=== PATIENT | female | born 1960 | race Caucasian/White ===

== ENCOUNTER 2022-03-18 09:34 | Emergency (ER) | payer MEDICARE, MEDICAID, SELFPAY ==
[2022-03-18] VITALS (8 sets, daily range): BP systolic 154–177; BP diastolic 84–118; PULSE 68–91; RESP 16–24; TEMP 36.7; O2SAT 92–100; BMI 31.7
--- NOTE | 2022-03-18 09:48 | ED_ITS ---
HPI - General Adult General: Chief complaint: General Medical Stated complaint: COUGHING UP BLOOD Time Seen by Provider: 03/18/22 09:46 Source: patient and family Mode of arrival: EMS History of Present Illness: 62-year-old female presents to the emergency room Course Vital Signs: Vital signs: Vital Signs Temperature 98.0 F 03/18/22 09:36 Pulse Rate 81 03/18/22 12:00 Respiratory Rate 24 H 03/18/22 12:00 Blood Pressure 154/96 03/18/22 12:00 Pulse Oximetry 97 03/18/22 12:00 Oxygen Delivery Me thod 03/18/22 12:00 Oxygen Flow Rate 2 03/18/22 12:00 MDM - General Adult Medical Decision Making Chest x-ray shows right lung mass is actually fairly impressive. Vital signs are stable. Call Dr. Mccarthy made arrangements for him to see the patient tomorrow he asked that we do a CT today so we can schedule a biopsy he also asked us to help get a PET scan set up in a few days and the PET scan was here all of this was done by case management. Went back to talk to the patient the family was now at the bedside. I began to talk to her about the lung mass that she stated she knew she had a right lung mass she had not told me about this earlier even when asked if she had previously had any hemoptysis. 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 They do confirm that the hemoptysis is relatively new. Reviewed recommendations with him for now since were anticipating a biopsy hold on the aspirin and Plavix. She takes Plavix for stroke prophylaxis she has not previously had any coronary stents per the patient and the family. Hold aspirin as well. She is to have a PET scan in 3 days. Her hemoglobin at this time is stable. Radiology on the CT read as possible obstructive pneumonia although she has very little signs of infectious process we will go and put her on a course of doxycycline for now. Return if she has worsening hemoptysis. Medical Records I reviewed the patient's medical records. Lab Data I reviewed the patient's lab results. : 03/18/22 10:30 03/18/22 10:[address] 03/18/22 09:48 IMPRESSION: Large region of encephalomalacia in the right frontal, parietal and superior temporal regions, suggestive of large right middle cerebral artery territory stroke. No non-contrast CT evidence of intracranial hemorrhage, masses or subacute stroke. Chest X-Ray 03/18/22 10:20 IMPRESSION: Volume loss in the right hemithorax with shift of the mediastinum towards the left. Right upper lung zone 6.7 x 7.3 cm region of airspace opacity. This could represent a mass. Adjacent patchy interstitial and airspace opacities. Some medial right mid to lower lung zone patchy airspace opacities also seen. Small right pleural effusion. Recommend chest CT for further assessment. Chest CT 03/18/22 11:19 IMPRESSION: 1. Suspect a central lesion growing into the mediastinum possibly involving the aortic compressing slightly to superior vena cava causing right lung consolidation with a lucent area questionably developing area of infection. 2. Infiltrate noted involving the lungs bilaterally otherwise most severe in the right base. Laboratory Results WBC 12.1 10^3/uL (4.0-10.0) H 03/18/22 10:30 RBC 4.58 10^6/uL (4.1-5.3) 03/18/22 10:30 Hgb 11.6 g/dL (11.5-15.3) 03/18/22 10:30 Hct 39.9 % (37.0-47.0) 03/18/22 10:30 MCV 87.1 fl (81-99) 03/18/22 10:30 MCH 25.3 pg (28.0-34.0) L 03/18/22 10:30 MCHC 29.1 g/dL (30.0-36.0) L 03/18/22 10:30 RDW 17.9 % (12.1-15.1) H 03/18/22 10:30 Plt Count 439 10^3/cmm (130-400) H 03/18/22 10:30 MPV 10.5 fL (7.4-10.4) H 03/18/22 10:30 Neut % (Auto) 76.6 % 03/18/22 10:30 Lymph % (Auto) 15.3 % 03/18/22 10:30 [place] % (Auto) 5.1 % 03/18/22 10:30 Eos % (Auto) 2.6 % 03/18/22 10:30 Baso % (Auto) 0.2 % 03/18/22 10:30 Neut # (Auto) 9.27 10^3/uL (1.8-7.7) H 03/18/22 10:30 Lymph # (Auto) 1.9 10^3/uL (0.8-4.8) 03/18/22 10:30 [place] # (Auto) 0.6 10^3/uL (0.2-0.9) 03/18/22 10:30 Eos # (Auto) 0.3 10^3/uL (0.0-0.8) 03/18/22 10:30 Baso # (Auto) 0.0 10^3/uL (0.0-0.1) 03/18/22 10:30 Nucleated RBC % (auto) 0 % 03/18/22 10:30 Nucleated RBCs # 0.0 /100WBC 03/18/22 10:30 PT 12.40 SECONDS (12.1-14.9) 03/18/22 10:30 INR 0.90 (0.8-1.2) 03/18/22 10:30 APTT 29.0 SECONDS (23.9-36.7) 03/18/22 10:30 Sodium 141 mmol/L (136-145) 03/18/22 10:30 Potassium 4.2 mmol/L (3.5-5.1) 03/18/22 10:30 Chloride 103 mmol/L (98-107) 03/18/22 10:30 Carbon Dioxide 26 mmol/L (22-29) 03/18/22 10:30 Anion Gap 16.2 (5-19) 03/18/22 10:30 BUN 11 mg/dL (8-23) 03/18/22 10:30 Creatinine 0.4 mg/dL (0.5-0.9) L 03/18/22 10:30 GFR Calculation 162.3 mL/min (90-130) H 03/18/22 10:30 Glucose 116 mg/dL (65-115) H 03/18/22 10:30 Calculated Osmolality 292 mOsm/kg (285-295) 03/18/22 10:30 Calcium 9.3 mg/dL (8.5-10.5) 03/18/22 10:30 Total Bilirubin 0.2 mg/dL (0.15-1.2) 03/18/22 10:30 AST 10 U/L (0-32) 03/18/22 10:30 ALT 10 U/L (0-33) 03/18/22 10:30 Alkaline Phosphatase 107 U/L (35-105) H 03/18/22 10:30 Total Protein 7.2 g/dL (6.6-8.7) 03/18/22 10:30 Albumin 3.3 g/dL (3.5-5.2) L 03/18/22 10:30 Globulin 3.9 g/dL (1.3-4.6) 03/18/22 10:30 Discharge Plan Discharge Patient Disposition: Home Clinical Impression: Mass of upper lobe of right lung, Hemoptysis Condition: Stable Prescriptions: New doxycycline hyclate 100 mg capsule 100 mg PO BID 10 Days Qty: 20 0RF Discontinued clopidogrel 75 mg tablet 75 mg PO QAM aspirin [Aspir-81] 81 mg Tablet,Delayed Release (Dr/Ec) 81 mg PO QAM No Action multivitamin Tablet 1 tab PO QAM losartan 50 mg tablet 50 mg PO QAM furosemide 40 mg tablet 40 mg PO QAM atorvastatin 40 mg tablet 40 mg PO BEDTIME gabapentin 600 mg tablet See Rx Instructions .ROUTE .COMPLEX Rx Instructions: 600mg po daily @12:00 and 1200mg po at bedtime trazodone 50 mg tablet 50 mg PO BEDTIME amlodipine 5 mg tablet 5 mg PO DAILY Calcium + D 600 mg-5 mcg (200 unit) Tablet 1 tab PO DAILY@12 baclofen 20 mg tablet 20 mg PO QID potassium chloride 20 mEq tablet,ER particles/crystals 20 meq PO DAILY@12 famotidine 20 mg tablet 20 mg PO BEDTIME magnesium oxide 400 mg (241.3 mg magnesium) tablet 400 mg PO DAILY@17 metformin 1,000 mg tablet 1,000 mg PO BID nitroglycerin 400 mcg/spray [place],Non-Aerosol 1 spray TRANSLINGUAL Q5M PRN (Reason: Chest Pain) Rx Instructions: do not exceed 3 doses per episode hydroxyzine HCl 25 mg tablet 25 mg PO BEDTIME metoprolol succinate 25 mg tablet extended release 24 hr 12.5 mg PO QAM albuterol sulfate 90 mcg/actuation Hfa Aerosol Inhaler 2 puff INHALATION QID PRN (Reason: Shortness Of Breath) dicyclomine 10 mg capsule 10 mg PO TID Vitamin D3 25 mcg (1,000 unit) Capsule 25 mcg PO DAILY@12 topiramate 50 mg tablet 50 mg PO BEDTIME pregabalin 150 mg capsule 150 mg PO TID cranberry 450 mg Tablet 450 mg PO DAILY@12 Rx Instructions: administer with a meal Discharge Orders: Discharge ED (Routine); Ordered 03/18/22 Ordered By: Karel Pryor Referrals: Datar,Chris Agrawal MD [Physician] - 03/19/22 11:15 am Patient Instructions: Opioid Safety Activity Restrictions/Additional Instructions: Follow-up with your doctor discharge as scheduled tomorrow morning. They have scheduled a PET scan for you Wednesday at 9 AM. Coding Level of Care Code ED Call Center Coordinator for Tomi Gramajo
--- NOTE | 2022-03-18 09:48 | CTR_ITS ---
PROCEDURE INFORMATION: Exam: CT Head Without Contrast Exam date and time: 03/18/2022 9:57 AM Age: 62 years old Clinical indication: Injury or trauma; Fall; Blunt trauma (contusions or hematomas); Patient HX: HX of stroke TECHNIQUE: Imaging protocol: Computed tomography of the head without contrast. Radiation optimization: All CT scans at this facility use at least one of these dose optimization techniques: automated exposure control; mA and/or kV adjustment per patient size (includes targeted exams where dose is matched to clinical indication); or iterative reconstruction. COMPARISON: No relevant prior studies available. RADIATION DOSE METRICS: Total DLP (mGy-cm): 874.68 FINDINGS: Brain: Large region of encephalomalacia is seen in the right frontal, parietal and superior temporal regions, suggestive of large right middle cerebral artery territory stroke. There is associated adjacent basal ganglion region and periventricular white matter gliosis. Recommend correlation with clinical history. There is mild generalized brain parenchymal atrophy seen in the remainder of the brain. Atrophic changes of the corpus callosum are seen. There are no intracranial masses, mass effect or midline shift. There is no cerebral edema. There is no subarachnoid hemorrhage. There are no intra-or extra-axial fluid collections, intraventricular or intraparenchymal hemorrhage. No definite areas of low attenuation or bah-white matter junction obscuration seen on the noncontrast CT to suggest definite subacute stroke - although the white matter disease limits assessment. Cerebral ventricles: Ex vacuo dilatation of the right lateral ventricle is seen. The left lateral third and fourth ventricles appear unremarkable. The suprasellar and basilar cisterns appear unremarkable. Paranasal sinuses: The visualized sinuses are unremarkable. Mastoid air cells: The visualized mastoids are unremarkable. Orbital cavities: The visualized orbits are unremarkable. Bones/joints: No definite acute osseous or skull abnormalities seen. Soft tissues: Unremarkable. Notes: If there is further clinical concern for intracranial pathology, MRI of the brain may be performed for further assessment. CT/CT head wo con* [id number] IMPRESSION: Large region of encephalomalacia in the right frontal, parietal and superior temporal regions, suggestive of large right middle cerebral artery territory stroke. No non-contrast CT evidence of intracranial hemorrhage, masses or subacute stroke.
--- NOTE | 2022-03-18 10:20 | XRR_ITS ---
PROCEDURE INFORMATION: Exam: XR Chest Exam date and time: 03/18/2022 10:25 AM Age: 62 years old Clinical indication: Patient HX: Coughing up blood; Additional info: Dyspnea/cough TECHNIQUE: Imaging protocol: Radiologic exam of the chest. Views: 1 view. COMPARISON: No relevant prior studies available. FINDINGS: Lungs: There is volume loss in the right hemithorax with shift of the mediastinum towards the left. Right upper lung zone 6.7 x 7.3 cm region of airspace opacity is seen. This could represent a mass. Adjacent patchy interstitial and airspace opacities are seen. Some medial right mid to lower lung zone patchy airspace opacities are also seen. Small right pleural effusion is seen. Recommend chest CT for further assessment. There is mild hyperinflation of the left lung. There are no left lung interstitial airspace opacities. Pleural spaces: Tiny left pleural effusion is seen. No pneumothorax. Heart/Mediastinum: The heart size is normal.There is a mildly tortuous thoracic aorta. There is mild shift of the trachea to the right. The patient is status post median sternotomy with sternal wires. Bones/joints: No acute osseous abnormalities seen. Soft tissues: Multiple external densities are seen overlying the chest, limiting assessment. XR/XR chest 1V portable [id number] IMPRESSION: Volume loss in the right hemithorax with shift of the mediastinum towards the left. Right upper lung zone 6.7 x 7.3 cm region of airspace opacity. This could represent a mass. Adjacent patchy interstitial and airspace opacities. Some medial right mid to lower lung zone patchy airspace opacities also seen. Small right pleural effusion. Recommend chest CT for further assessment.
--- NOTE | 2022-03-18 10:42 | ECG_ITS ---
[facility] Test Date: 2022-03-18 Pat Name: Cee Dai Department: Room: Gender: Female Biotechnician: : 1960 Requested By: Karel Coughlin Order Number: [id number] Richie MD: Benedict Watt M.D. Measurements Intervals [place] Rate: 71 P: 57 [place]: 159 QRS: 30 QRSD: 86 T: 56 QT: 361 QTc: 395 Interpretive Statements SINUS RHYTHM WITH OCCASIONAL SUPRAVENTRICULAR PREMATURE COMPLEXES LOW QRS VOLTAGE IN PRECORDIAL LEADS [QRS DEFLECTION < 1.0 mV IN CHEST LEADS] No previous ECG available for comparison Electronically Signed On 03-18-2022 17:17:26 CDT by Benedict Watt M.D. [id number]
[2022-03-18 10:54] LABS: Basophils % 0.2 %; Eosinophils # 0.3 10^3/uL (0.0-0.8); Eosinophils % 2.6 %; Hematocrit 39.9 % (37.0-47.0); Hemoglobin 11.6 g/dL (11.5-15.3); Lymphocytes # 1.9 10^3/uL (0.8-4.8); Lymphocytes % 15.3 %; Mean Corpuscular HGB Conc 29.1 g/dL (30.0-36.0); Mean Corpuscular Hemoglobin 25.3 pg (28.0-34.0); Mean Corpuscular Volume 87.1 fl (81-99); Mean Platelet Volume 10.5 fL (7.4-10.4); Monocytes # 0.6 10^3/uL (0.2-0.9); Monocytes % 5.1 %; Neutrophils # 9.27 10^3/uL (1.8-7.7); Neutrophils % 76.6 %; Nucleated Red Blood Cells % 0 %; Platelet Count 439 10^3/cmm (130-400); Red Blood Count 4.58 10^6/uL (4.1-5.3); Red Cell Distribution Width 17.9 % (12.1-15.1); White Blood Count 12.1 10^3/uL (4.0-10.0)
[2022-03-18 11:06] LABS: Alanine Aminotransferase 10 U/L (0-33); Albumin Level 3.3 g/dL (3.5-5.2); Alkaline Phosphatase 107 U/L (35-105); Anion Gap 16.2 (5-19); Aspartate Amino Transferase 10 U/L (0-32); Blood Urea Nitrogen 11 mg/dL (8-23); Calcium 9.3 mg/dL (8.5-10.5); Carbon Dioxide 26 mmol/L (22-29); Chloride 103 mmol/L (98-107); Globulin 3.9 g/dL (1.3-4.6); Glomerular Filtration Rate 162.3 mL/min (90-130); Glucose 116 mg/dL (65-115); Osmolality Calculated 292 mOsm/kg (285-295); Potassium 4.2 mmol/L (3.5-5.1); Sodium 141 mmol/L (136-145); Total Bilirubin 0.2 mg/dL (0.15-1.2); Total Protein 7.2 g/dL (6.6-8.7)
--- NOTE | 2022-03-18 11:19 | CTR_ITS ---
PROCEDURE INFORMATION: Exam: CT Chest With Contrast; Diagnostic Exam date and time: 03/18/2022 12:22 PM Age: 62 years old Clinical indication: Mass, lump, or swelling in the chest; Prior surgery; Surgery date: 6+ months; Surgery type: Heart surgery; Additional info: Lung mass, hemoptysis TECHNIQUE: Imaging protocol: Diagnostic computed tomography of the chest with contrast. Radiation optimization: All CT scans at this facility use at least one of these dose optimization techniques: automated exposure control; mA and/or kV adjustment per patient size (includes targeted exams where dose is matched to clinical indication); or iterative reconstruction. Contrast material: OMNIPAQUE; Contrast volume: 80 ml; Contrast route: INTRAVENOUS (IV); COMPARISON: CR XR chest 1V portable [id number] 03/18/2022 10:25 AM RADIATION DOSE METRICS: Total DLP (mGy-cm): 437.51 FINDINGS: Lungs: There is a large area of consolidation with a more central area of lucency involving the right upper lobe. The lucency measures 40 x 50 mm image 3/22 surrounded by possibly atelectatic lung. The presence of a central mass is question measuring possibly 2 cm on image 3/23. Consolidation infiltrate is noted involving the right lower lobe as well as the lingula. Ill-defined tree-in-bud type infiltrate is noted involving the left lower lobe and minimally in the left upper lobe. Pleural spaces: Unremarkable. No pneumothorax. No pleural effusion. Heart: Unremarkable. No cardiomegaly. No pericardial effusion. Lymph nodes: Unremarkable. No enlarged lymph nodes. Vasculature: The mass questionably centrally within the lung does compressed superior vena cava and may involve the aorta with irregularity of the aortic wall image 3/22 extending into the mediastinum where there is a 20 x 22 mm density/mass. Bones/joints: Sternal sutures. Soft tissues: Unremarkable. CT/CT chest w con* [id number] IMPRESSION: 1. Suspect a central lesion growing into the mediastinum possibly involving the aortic compressing slightly to superior vena cava causing right lung consolidation with a lucent area questionably developing area of infection. 2. Infiltrate noted involving the lungs bilaterally otherwise most severe in the right base.
[2022-03-18] MEDS: diphenhydrAMINE 50 mg/mL SDV 1mL IVP (11:54)
[2022-03-18] MEDS: iohexol 350 mg/mL 100 mL Btl IV (12:27)
--- NOTE | 2022-03-18 14:17 | DCPLANNER ---
Addendum entered by Karla Jamison 04/24/22 12:25: Patient had a follow up appointment scheduled with pulmonology - patient did attend appointment. Addendum entered by Karla Jamison 03/19/22 12:36: manager outpatient faxed patients records that were requested for the PET scan to [phone]. Original Note: manager outpatient was asked to schedule an out patient CT scan for patient, stat. manager outpatient faxed order to centralized scheduling and explained to centralized scheduling and explained that the patient wanted this ordered as soon as possible. Centralized scheduling will call patient appointment information. manager outpatient was asked to schedule a follow up appointment for patient with pulmonology. manager outpatient called Sandi at [facility], gave her patients information and informed her that Dr. Harmon was consulted on patient and that Dr. Harmon said that he would see patient tomorrow (03.19.22) afternoon. manager outpatient was told that [facility] would speak with Dr. Harmon nurse and call patient back with the appointment information. Patient has a follow up appointment scheduled for March at 11:15. manager outpatient informed ER physician and the patient of the scheduled appointment. manager outpatient was also asked to schedule an outpatient PET scan for patient. manager outpatient called to schedule a PET scan. The scan was scheduled for Wednesday, March 21 at 9:00. manager outpatient informed ER physician of the scheduled appointment. manager outpatient also informed patient of the scheduled PET scan. manager outpatient will need to fax ER notes, demographic sheet, and imaging to . manager outpatient spoke with Dr. Harmon about placing an order for the PET scan, was told that he would sign it but would need to speak with his nurse. manager outpatient left a message for Dr. Harmon's nurse at [facility], that the order would need to be faxed and that Dr. Harmon notes from the visit tomorrow would need to be faxed by tomorrow afternoon, and gave the number that the information would need to be faxed to.
== END 2022-03-18 13:30 | disposition home or self-care (01) ==
PROVIDERS: Emergency Provider Family Medicine
DX: R04.2 Hemoptysis (principal); R91.8 Other nonspecific abnormal finding of lung field; Z79.84 Long term (current) use of oral hypoglycemic drugs
CPT/HCPCS: 70450; 71045; 71260; 80053; 85025; 85610; 85730; 93005; 96374; 96375; 99285; J1200; J2920; Q9967

== ENCOUNTER → 2022-03-19 11:02 | Outpatient (BNVA) | payer MEDICARE, MEDICAID, SELFPAY | PROVIDERS: PCP Nurse Practitioner Family; Visit Provider Internal Medicine Pulmonary Disease | DX: R04.2 Hemoptysis (principal); R91.8 Other nonspecific abnormal finding of lung field; J44.9 Chronic obstructive pulmonary disease, unspecified; Z87.891 Personal history of nicotine dependence; Z91.89 Other specified personal risk factors, not elsewhere classified; I69.354 Hemiplegia and hemiparesis following cerebral infarction affecting left non-dominant side | CPT/HCPCS: 99214 ==

== ENCOUNTER 2022-03-24 05:47 | Day surgery (SDC) | payer MEDICARE, MEDICAID, SELFPAY ==
[2022-03-20 12:00] VITALS: BMI 30.7
[2022-03-24] VITALS (15 sets, daily range): BP systolic 95–126; BP diastolic 43–73; PULSE 56–86; RESP 14–16; TEMP 36.2–36.3; O2SAT 91–99
[2022-03-24] MEDS: sodium chloride 0.9% 1,000 ML 30 ML IV (06:24)
--- NOTE | 2022-03-24 06:59 | P.ANESASSM_ITS ---
Pre-Anesthetic Assessment Height/Weight: Height 1.65 m Weight 83.915 kg Temp Pulse Resp BP Pulse Ox O2 Del Method 97.3 F L 59 L 16 107/66 91 03/24/22 06:11 03/24/22 06:11 03/24/22 06:11 03/24/22 06:11 03/24/22 06:11 03/24/22 06:11 Operation Date: 03/24/22 07:10 Proposed Procedures p EBUS; 21112, 41998, 45135, 02939,R91.8(Not Applicable) - Chris Agrawal DatarMD Familial anesthetic complications: None Was Beta Daphne taken within 24 hours: Yes Was Clonidine taken within 24 hours: N/A Last intake: Intake Last Liquid Date 03/23/22 Last Liquid Time 19:00 Last Solid Date 03/23/22 Last Solid Time 16:00 Social Tobacco 3 pack(s) per day Quit smoking a few weeks ago Exam alert and oriented x 3 Bilateral wheezing in lower lobes. Wears 2L O2. Airway Submandibular: within normal limits Cervical ROM: within normal limits Mallampati: Class III Dentition: other (No teeth) History/ROS No significant history except as noted and No significant complaints Pulmonary Chronic Obstructive Pulmonary Disease and Cough CV/HEM Coronary Artery Disease and Hypertension 1 stent placed years. Last saw helicopter engineer years ago. Urinary Tract Infection Last UTI 3-4 years ago Hepatic None reported GI None reported Metabolic Diabetes Mellitus and Hyperlipidemia Musc/skel Lower Back Pain Neuropsych Anxiety and Cerebrovascular Accident Stroke in 2015. Paralyzed left side. Anesthetic Plan ASA status: 3 Anesthesia: Anesthesia Evaluation and General Risk of > 500 ml blood loss (7ml/kg in children): No Medications/Allergies Home Medications Medication Instructions Recorded Confirmed Last Taken Type albuterol sulfate 90 mcg/actuation 2 puff inhalation QID PRN 03/18/22 03/24/22 03/23/22 History aerosol inhaler Shortness Of Breath amlodipine 5 mg tablet 5 mg PO DAILY 03/18/22 03/24/22 1 Week Ago History ~03/11/22 see pharmacy comment atorvastatin 40 mg tablet 40 mg PO BEDTIME 03/18/22 03/24/22 03/23/22 History baclofen 20 mg tablet 20 mg PO QID 03/18/22 03/24/22 03/23/22 History cholecalciferol (vitamin D3) 25 25 mcg PO DAILY@12 03/18/22 03/24/22 03/23/22 History mcg (1,000 unit) capsule (Vitamin D3) cranberry fruit 450 mg tablet 450 mg PO DAILY@03/18/22 03/24/22 03/23/22 History (cranberry) dicyclomine 10 mg capsule 10 mg PO TID 03/18/22 03/24/22 03/23/22 History doxycycline hyclate 100 mg capsule 100 mg PO BID 10 days #20 caps 03/18/22 03/24/22 03/23/22 Rx famotidine 20 mg tablet 20 mg PO BEDTIME 03/18/22 03/24/22 03/23/22 History furosemide 40 mg tablet 40 mg PO QAM 03/18/22 03/24/22 03/23/22 History gabapentin 600 mg tablet See Rx Instructions .Route .COMPLEX 03/18/22 03/24/22 03/23/22 History hydroxyzine HCl 25 mg tablet 25 mg PO BEDTIME 03/18/22 03/24/22 03/23/22 History losartan 50 mg tablet 50 mg PO QAM 03/18/22 03/24/22 03/23/22 History magnesium oxide 400 mg (241.3 mg 400 mg PO DAILY@03/18/22 03/24/22 03/23/22 History magnesium) tablet metformin 1,000 mg tablet 1,000 mg PO BID 03/18/22 03/24/22 03/23/22 History metoprolol succinate 25 mg 12.5 mg PO QAM 03/18/22 03/24/22 03/24/22 History tablet,extended release 24 hr multivitamin 1 tab PO QAM 03/18/22 03/24/22 03/23/22 History nitroglycerin 400 mcg/spray 1 spray translingual Q5M PRN Chest 03/18/22 03/24/22 Unknown History translingual Pain potassium chloride 20 mEq 20 meq PO DAILY@03/18/22 03/24/22 03/23/22 History tablet,extended release(part/cryst) pregabalin 150 mg capsule 150 mg PO TID 03/18/22 03/24/22 03/23/22 History topiramate 50 mg tablet 50 mg PO BEDTIME 03/18/22 03/24/22 03/23/22 History trazodone 50 mg tablet 50 mg PO BEDTIME 03/18/22 03/24/22 03/23/22 History calcium carbonate 600 mg-vitamin 1 tab PO DAILY@12 03/19/22 03/24/22 03/23/22 History D3 5 mcg (200 unit) tablet melatonin 10 mg capsule 20 mg PO DAILY 03/19/22 03/24/22 03/23/22 History tiotropium bromide 2.5 2 puff inhalation DAILY #4 grams 03/19/22 03/24/22 03/23/22 Rx mcg/actuation mist for inhalation (Spiriva Respimat) Allergies Allergy/AdvReac Type Severity Reaction Status Date / Time codeine Allergy ADR-Vomitin Verified 03/24/22 06:08 g Iodinated Contrast Media Allergy ALGY-Redness Verified 03/24/22 06:08 of Skin Penicillins Allergy ALGY-Hives Verified 03/24/22 06:08 Current Medications Generic Name Dose Route Start Last Admin Trade Name Freq PRN Reason Stop Dose Admin Sodium Chloride 1,000 mls @ 30 mls/hr 03/24/22 06:00 03/24/22 06:24 Sodium Chloride 0.9% IV 03/25/22 05:59 30 mls/hr .Q24H WES Administration PFSH Anesthesia Social History Smoking and tobacco status: former smoker Quit status (tobacco): has quit using tobacco Year quit tobacco: January 2022 Former quit date comment: 3ppd x 45 Data Anesthesia Cardiac Studies: No Data to Display
--- NOTE | 2022-03-24 07:00 | W.PM.OPSUD ---
Surgery/Procedure H&P Update DATE OF PROCEDURE: March 24, 2022 DATE H&P PERFORMED: 03/19/22 CHANGES TO PREVIOUS DOCUMENTATION: none PRIMARY INDICATION FOR PROCEDURE: right upper lobe mass - suspicous for malignancy PLANNED PROCEDURE: Operation Date: 03/24/22 07:10 Proposed Procedures p EBUS; 20429, 48454, 43277, 86494,R91.8(Not Applicable) - Chris Agrawal DatarMD Related Problem List Diagnoses (1) Mass of upper lobe of right lung: (2) Hemoptysis:
[2022-03-24] MEDS: ipratropium-albuterol 3 mL Neb INHALATION (07:15)
[2022-03-24] MEDS: lidocaine 1% INJ 20 mL XX (08:13)
[2022-03-24] MEDS: EPINEPHrine 1 mg/mL INJ XX (08:13)
--- NOTE | 2022-03-24 08:40 | XRR_ITS ---
PROCEDURE INFORMATION: Exam: XR Chest Exam date and time: 03/24/2022 8:46 AM Age: 62 years old Clinical indication: Device placement; Other: Post bronchoscopy; Prior surgery; Surgery date: Post-operative (0-2 days) TECHNIQUE: Imaging protocol: Radiologic exam of the chest. Views: 1 view. COMPARISON: CT chest w con* [id number] 03/18/2022 12:22 PM FINDINGS: Lungs: There are unchanged decreased right lung volumes. Unchanged right upper lobe ovoid region of airspace opacity is seen. Unchanged medial right basilar opacities are seen. There is unchanged hyperinflation of the left lung. Unchanged minimal left basilar interstitial opacities are seen. Unchanged small right pleural effusion. Pleural spaces: No pneumothorax. Heart/Mediastinum: There is unchanged shift of the mediastinum towards the right. The heart size is normal. The patient is status post prior median sternotomy with sternal wires. Bones/joints: No acute abnormalities. Mild rightward scoliosis of the lumbar spine is seen. Soft tissues: Multiple external densities are seen overlying the chest, limiting assessment. XR/XR chest 1V portable [id number] IMPRESSION: No significant change in correlation with the prior chest radiograph dated March 18, 2022.
--- NOTE | 2022-03-24 08:41 | P.OP_ITS ---
Operative Report Date of procedure: March 24, 2022 Pre-op diagnosis: right upper lobe mass suspected malignancy Post-op diagnosis: malignancy Procedure done: 31587 Dx Bronchoscope w/Washings or airway inspection 26922 Dx Bronchoscope w/BAL 83582 Dx Bronchoscopy w/Bronchial or Endobronchial biopsy(s), single or multiple sites Brief History: 62 year old female with PMH COPD, Chronic smoker, H/O CVA with dense left hemiplegia, hypertension, diabetes, seen in [facility] ED 03/18/22? f/u for hemoptysis, lung mass seen on CT;?? Former cigarette smoker, quit January 2022, 3ppd x 45 year Hx.? Receiving services through [place], 02 therapy from [facility]. ? ? Reviewed CT chest 03/18/22 - Suspect a central lesion growing into the mediastinum possibly involving the aortic compressing slightly to superior vena cava causing right lung consolidation with a lucent area questionably developing area of infection. Infiltrate noted involving the lungs bilaterally otherwise most severe in the right base. She has known about lung mass for approx 1 year found at [facility], had a second CT and told she needed to see pulm, but appt never set up.? Daughter Donna who is HH nurse moved Pt in with her January 2022 and began coordinating care. ? Using 02 therapy prn during the day and with sleep at night, typically 02 sats at home mid 80s on RA. Today scheduled for bronchoscopic evaluation of right upper lobe mass for possible endobronchial biopsies, possible endobronchial ultrasound-guided biopsies of mediastinal and hilar lesions which will help with staging, Procedure: Name of the procedure: 64512:Dx Bronchoscope w/Washings or airway inspection 15188: Dx Bronchoscope w/BAL 34512:Dx Bronchoscopy w/Bronchial or Endobronchial biopsy(s), single or multiple sites Control of bleeding Indication: Right upper lobe central lesion extending into mediastinum seen on CT chest 03/18/2022 Anesthesia: General anesthesia. Local anesthesia: The rosa in the right and left mainstem bronchi were anesthetized with 1% lidocaine, 3 mL. Description of the procedure: The procedure was explained to the patient and the consent was obtained. The patient was brought to the OR. The patient underwent LMA placement for general anesthesia. Following induction of general anesthesia, the bronchoscope was advanced through the LMA. Normal glottis with mobile vocal cords noted. 1 mL 1% lidocaine instilled. Bronchoscope was advanced through the glottis and 1 mL 1% lidocaine instilled in the trachea. The trachea appeared normal mucosa with no endotracheal lesions. The rosa was sharp. The rosa, the right and left mainstem bronchi are anesthetized with 1% lidocaine. In a systematic manner bilateral bronchial tree was then examined. The bronchoscope was advanced into the left mainstem bronchus. The left upper lobe, lingula and left lower lobe bronchi were examined up to the third subsegmental level and no abnormalities were identified. There is no endobronchial lesion, active bleeding or mucous plug throughout the left endobronchial tree. The bronchoscope was then introduced into the right mainstem bronchus. The opening of right upper lobe is completely occluded with extrinsic compression. While attempting to pass scope through the right upper lobe ostia, patient started to bleed which was controlled with cold saline. The scope was then advanced into bronchus intermedius and evaluated right middle lobe and right lower lobe bronchi were examined up to the third subsegmental level. The right lower lobe subsegment all appeared edematous with no definitive endobronchial lesion. Initially took 1 endobronchial biopsy from the right upper lobe. Pathology did JULIAN and reported malignant cells. But as patient was actively bleeding, I have to to instill epinephrine and cold saline to control bleeding. At this point I decided to inspect with endobronchial ultrasound and see if I can biopsy hilar or mediastinal mass. So currently bronchoscope was retracted and Endobronchial ultrasound was introduced through LMA. Right hilar and mediastinal mass was seen infiltrating the vasculature and could not identify a safe area for biopsy. Hence I did not biopsy using endobronchial ultrasound and retracted EBUS. I again introduced bronchoscope and by then bleeding from right upper lobe are still opening stopped. So I proceeded to obtain 4-5 specimens from the same area and placed in formalin for further studies. Also obtained BAL from right upper lobe and sent for cultures and cytology; and did BAL from right lower lobe and sent as a separate specimen for cultures and cytology Samples: 1. Bronchoalveolar lavage specimen from right upper lobe was sent for cell count and differential, Gram stain and culture, 2. Bronchoalveolar lavage specimen from right lower lobe was sent for cell count and differential, Gram stain and culture, 3. The endobronchial biopsies from right upper lobe are sent for histopathology. Complications: There was no immediate complications. Postprocedure fluoroscopy did not reveal any pneumothorax. The patient was extubated and brought to the PACU in stable condition. Chest x-ray: No pneumothorax Disposition: Patient is stable for discharge and updated in the next of kin patient's daughter and son to follow-up in clinic for path results next week.
[2022-03-24 09:23] LABS: Cyto Order Verification Order Verified
[2022-03-24 09:24] LABS: Cyto Order Verification Order Verified
[2022-03-24 10:03] LABS: Apprearance, Bronch Wash Bloody (CLEAR); Color, Bronc Wash Red; Total Cells Counted Bronch 300
[2022-03-24 10:18] LABS: Apprearance, Bronch Wash Bloody (CLEAR); Color, Bronc Wash Red; Total Cells Counted Bronch 300
--- NOTE | 2022-03-24 13:14 | ANE.PACU2 ---
Inpatient post-anesthesia follow up: Airway intact: Yes Vital signs: Temperature 97.2 F Pulse Rate 56 Respiratory Rate 16 Blood Pressure 112/52 Pulse Oximetry 98 Oxygen Delivery Me thod Nasal Cannula Oxygen Flow Rate 2 Fraction of Inspir ed Oxygen Hydration adequate: Yes Nausea and vomiting: No Pain level: 1 Mental status: Baseline
[2022-03-30 14:39] LABS: PD-L1 (Clone 22C3) by IHC BBPL See Report
== END 2022-03-24 10:34 | disposition home or self-care (01) ==
PROVIDERS: PCP Nurse Practitioner Family; Visit Provider Internal Medicine Pulmonary Disease
PROC: BB4BZZZ Ultrasonography of Pleura (ICD-10-PCS; principal; 2022-03-24 07:00)
PROC: 0BJ08ZZ Inspection of Tracheobronchial Tree, Via Natural or Artificial Opening Endoscopic (ICD-10-PCS; CPT 31622; 2022-03-24 07:00)
DX: R91.8 Other nonspecific abnormal finding of lung field (principal); Z87.891 Personal history of nicotine dependence; Z99.81 Dependence on supplemental oxygen; J44.9 Chronic obstructive pulmonary disease, unspecified; I25.10 Atherosclerotic heart disease of native coronary artery without angina pectoris; I10 Essential (primary) hypertension; Z95.5 Presence of coronary angioplasty implant and graft; E11.9 Type 2 diabetes mellitus without complications; E78.5 Hyperlipidemia, unspecified; F41.9 Anxiety disorder, unspecified; Z86.73 Personal history of transient ischemic attack (TIA), and cerebral infarction without residual deficits
CPT/HCPCS: 31624; 31625; 31652; 71045; 80503; 87070; 87077; 87186; 87205; 88108; 88307; 88341; 88342; 89050; 94640; J0171; J0330; J1100; J2370; J2405; J2704; J3490; J7030

== ENCOUNTER 2022-04-01 08:08 | Oncology outpatient (recurring) (ONCR) | payer MEDICARE, MEDICAID, SELFPAY | END 2022-04-01 23:59 | disposition home or self-care (01) | PROVIDERS: PCP Nurse Practitioner Family; Visit Provider Internal Medicine Hematology & Oncology | DX: C34.91 Malignant neoplasm of unspecified part of right bronchus or lung (principal); J43.9 Emphysema, unspecified; C34.11 Malignant neoplasm of upper lobe, right bronchus or lung; Z87.891 Personal history of nicotine dependence; I69.354 Hemiplegia and hemiparesis following cerebral infarction affecting left non-dominant side; Z91.89 Other specified personal risk factors, not elsewhere classified; Z95.5 Presence of coronary angioplasty implant and graft | CPT/HCPCS: 99204; 99214 ==

== ENCOUNTER 2022-04-20 12:47 | Oncology outpatient (recurring) (ONCR) | payer MEDICARE, MEDICAID, SELFPAY ==
[2022-04-17 09:00] LABS: Basophils % 0.3 %; Eosinophils # 0.3 10^3/uL (0.0-0.8); Eosinophils % 2.9 %; Hematocrit 40.7 % (37.0-47.0); Hemoglobin 11.5 g/dL (11.5-15.3); Lymphocytes # 2.2 10^3/uL (0.8-4.8); Lymphocytes % 19.3 %; Mean Corpuscular HGB Conc 28.3 g/dL (30.0-36.0); Mean Corpuscular Hemoglobin 25.4 pg (28.0-34.0); Mean Corpuscular Volume 89.8 fl (81-99); Mean Platelet Volume 10.7 fL (7.4-10.4); Monocytes # 0.7 10^3/uL (0.2-0.9); Monocytes % 5.9 %; Neutrophils # 8.23 10^3/uL (1.8-7.7); Neutrophils % 71.2 %; Nucleated Red Blood Cells % 0 %; Platelet Count 436 10^3/cmm (130-400); Red Blood Count 4.53 10^6/uL (4.1-5.3); Red Cell Distribution Width 20.3 % (12.1-15.1); White Blood Count 11.6 10^3/uL (4.0-10.0)
[2022-04-17 09:16] LABS: Alanine Aminotransferase 9 U/L (0-33); Albumin Level 3.6 g/dL (3.5-5.2); Alkaline Phosphatase 140 U/L (35-105); Aspartate Amino Transferase 12 U/L (0-32); Blood Urea Nitrogen 8 mg/dL (8-23); Calcium 9.8 mg/dL (8.5-10.5); Carbon Dioxide 21 mmol/L (22-29); Chloride 105 mmol/L (98-107); Globulin 4.2 g/dL (1.3-4.6); Glomerular Filtration Rate 125.4 mL/min (90-130); Glucose 92 mg/dL (65-115); Osmolality Calculated 286 mOsm/kg (285-295); Sodium 139 mmol/L (136-145); Total Bilirubin 0.2 mg/dL (0.15-1.2); Total Protein 7.8 g/dL (6.6-8.7)
[2022-04-17 09:20] LABS: Anion Gap 17.3 (5-19); Potassium 4.3 mmol/L (3.5-5.1)
--- NOTE | 2022-04-20 13:25 | N.ONRAD NP_ITS ---
Radiation Oncology Consultation Patient Name: Cee Dai Date of : 1960 Date of Service: 04/20/2022 Attending Physician: Sher Montanez M.D. Cee aDi was seen in consultation this afternoon at the request of Fani Sepulveda M.D. for consideration of thoracic radiotherapy in the management of a recently diagnosed non-small cell lung cancer. The patient evaluated at the [facility] Emergency Department on March 18, 2022 for hemoptysis. A chest radiograph identified a 6.7 cm x 7.3 cm right upper lung opacity. A thoracic CT described a 4 cm x 5 cm consolidation within the right upper lobe of the lung that compresses the superior vena cava with possible involvement of the aorta and a right lower-lobe consolidation. A bronchoscopy with endobronchial biopsies was performed by Chris Mccarthy M.D. on March 24, 2022. Intraoperative findings included occlusion of the right upper lobe bronchus from extrinsic compression. Biopsy from the right upper lobe mass diagnosed a poorly differentiated adenocarcinoma (PD???L1 TPS greater than 50%). A PET scan (independently reviewed in [facility]) ordered on April 07, 2022 confirmed a hypermetabolic consolidation in the right upper lobe of the lung (SUV 6.5) and FDG activity within the right hilum. There was no systemic metastatic disease. The patient was evaluated for definitive thoracic radiotherapy. I discussed with Ms. Dai the [place] [employer] Staging for lung cancer and specifically, the clinical stage IIIA (T3N1) lung cancer corresponding to her disease. I also reviewed The National Comprehensive Cancer Network Guidelines recommending s concurrent chemoradiotherapy. Combined modality therapy was established by the classic study, RTOG 9410, comparing sequential versus concurrent chemoradiotherapy that demonstrated an overall survival advantage for the concurrent chemoradiotherapy regimen. I would endorse a six week course of thoracic radiotherapy. Prior to treatment, I will order an MRI of the brain to complete staging. Preceding radiotherapy, a computed tomographic radiotherapy planning scan with contrast in the treatment position will be acquired and co-registered to the patient's staging PET scan to identify the gross tumor volumes. The potential toxicities of thoracic radiotherapy were reviewed. The patient has verbalized understanding would like to proceed as recommended. The patient???s treatment plan was discussed with Fani Sepulveda M.D. Signed by: Dr. Sher Montanez 05/07/2022 8:36:38 AM
== END 2022-05-01 23:59 | disposition home or self-care (01) ==
PROVIDERS: Internal Medicine Hematology & Oncology; PCP Nurse Practitioner Family; Visit Provider Radiology Radiation Oncology
DX: C34.11 Malignant neoplasm of upper lobe, right bronchus or lung (principal)
CPT/HCPCS: 36415; 80053; 85025; 99205; 99214

== ENCOUNTER → 2022-04-22 10:48 | Outpatient (BNVA) | payer MEDICARE, MEDICAID, SELFPAY | PROVIDERS: PCP Nurse Practitioner Family; Visit Provider Surgery | DX: C34.90 Malignant neoplasm of unspecified part of unspecified bronchus or lung (principal) | CPT/HCPCS: 99203 ==

== ENCOUNTER 2022-04-30 09:50 | Emergency (ER) | payer MEDICARE, MEDICAID, SELFPAY ==
[2022-04-30 09:57] VITALS: BP 182/111; PULSE 74; RESP 16; O2SAT 94; BMI 31.7
[2022-04-30 10:01] VITALS: BP 153/93
--- NOTE | 2022-04-30 10:07 | ED_ITS ---
HPI - Back Pain/Injury General: Chief Complaint: Back Pain/Injury Stated Complaint: back pain Time Seen by Provider: 04/30/22 10:04 [facility] ED PFSH: Medical History Cancer of right lung Family History Other CAD (coronary artery disease) Cancer Dementia Diabetes Hyperlipidemia Hypertension Lung disease Denies family history of Clotting disorder Psychiatric illness Chronic kidney disease (CKD) Suicide Anesthesia complication Bleeding disorder Stroke Social History Smoking and tobacco status: current every day smoker Quit status (tobacco): has quit using tobacco Year quit tobacco: January 2022 Former quit date comment: 3ppd x 45 Alcohol intake: never Course Vital Signs: Vital signs: Vital Signs Pulse Rate 74 04/30/22 09:57 Respiratory Rate 16 04/30/22 09:57 Blood Pressure 153/93 04/30/22 10:01 Pulse Oximetry 94 04/30/22 09:57 Oxygen Delivery Me thod 04/30/22 09:57 Oxygen Flow Rate 2 04/30/22 09:57 Discharge Plan Discharge Condition: Stable Prescriptions: No Action clopidogrel [Plavix] 75 mg tablet 75 mg PO DAILY aspirin 81 mg tablet,chewable 81 mg PO DAILY melatonin 10 mg capsule 20 mg PO DAILY Spiriva Respimat 2.5 mcg/actuation mist 2 puff inhalation DAILY Qty: 4 3RF multivitamin Tablet 1 tab PO QAM losartan 50 mg tablet 50 mg PO QAM furosemide 40 mg tablet 40 mg PO QAM atorvastatin 40 mg tablet 40 mg PO BEDTIME gabapentin 600 mg tablet See Rx Instructions .ROUTE .COMPLEX Rx Instructions: 600mg po daily @12:00 and 1200mg po at bedtime trazodone 50 mg tablet 50 mg PO BEDTIME amlodipine 5 mg tablet 5 mg PO DAILY baclofen 20 mg tablet 20 mg PO QID potassium chloride 20 mEq tablet,ER particles/crystals 20 meq PO DAILY@12 famotidine 20 mg tablet 20 mg PO BEDTIME magnesium oxide 400 mg (241.3 mg magnesium) tablet 400 mg PO DAILY@17 metformin 1,000 mg tablet 1,000 mg PO BID nitroglycerin 400 mcg/spray Friend,Non-Aerosol 1 spray TRANSLINGUAL Q5M PRN (Reason: Chest Pain) Rx Instructions: do not exceed 3 doses per episode hydroxyzine HCl 25 mg tablet 25 mg PO BEDTIME metoprolol succinate 25 mg tablet extended release 24 hr 12.5 mg PO QAM albuterol sulfate 90 mcg/actuation Hfa Aerosol Inhaler 2 puff INHALATION QID PRN (Reason: Shortness Of Breath) dicyclomine 10 mg capsule 10 mg PO TID topiramate 50 mg tablet 50 mg PO BEDTIME pregabalin 150 mg capsule 150 mg PO TID cranberry 450 mg Tablet 450 mg PO DAILY@12 Rx Instructions: administer with a meal calcium carbonate-vitamin D3 600 mg-5 mcg (200 unit) tablet 1 tab PO DAILY@12 Referrals: Nelly Chowdary FNP [Primary Care Provider] - Coding Level of Care Code ED Deburr Operator for Tomi Gramajo
--- NOTE | 2022-04-30 10:10 | CT_ITS ---
WS: [id number] CT LUMBAR SPINE, noncontrast. HISTORY: back pain, history of lung cancer. TECHNIQUE: Contiguous 2.5 mm axial imaging are performed. Sagittal and coronal reformats are submitte d and reviewed. All CT scans at [facility] use at least one of these dose optimization techni ques: automated exposure control; mA and/or kV adjustment per patient size (includes targeted exams w here dose is matched to clinical indication); or iterative reconstruction. IV contrast: None DLP: 743.90 mGy.cm COMPARISON: PET/CT 04/07/2022, prior CT 08/15/2021 Mild RIGHT rotoscoliosis of the lumbar spine. 2 mm retrolisthesis of L2. Severe sclerosis with subcho ndral cystic changes involving the RIGHT lateral L4 and L5 vertebral bodies. Hypertrophic osteophytes at all levels. No osteoblastic or osteolytic lesions are identified. L1-2: No stenosis. L2-3: Diffuse asymmetric disc bulging with ligamentum flavum hypertrophy and facet arthritis. Posteri or L3 vertebral body osteophyte encroaches into the thecal sac. Moderate central with bilateral subar ticular recess and foraminal stenosis. L3-4: Diffuse asymmetric disc bulge. RIGHT foraminal disc protrusion. Disc protrusion contacts the RI GHT lateral thecal sac. Moderate central with bilateral subarticular recess stenosis but greater on t he RIGHT. L4-5: Diffuse annular disc bulging with encroachment upon the ventral thecal sac. Mild central and bi lateral subarticular recess stenosis. L5-S1: Diffuse disc bulging with mild central and bilateral foraminal stenosis. Very small RIGHT pleural thickening. Increased soft tissue thickening may be a very small effusion or post treatment related pleural thickening. Visualized adrenal glands are negative. Heavy calcificati on within the abdominal aorta. No osteoblastic or osteolytic bone disease. CT/CT lumbar spine wo con* [id number] IMPRESSION: 1. No evidence for metastatic disease to the spine. 2. Multilevel asymmetric disc bulging with protrusions, facet and ligamentum f lavum hypertrophy causing stenosis. Moderate central and bilateral subarticular recess stenosis at L3-4, greater on the RIGHT. 3. Moderate central with bilateral subarticular recess and foraminal stenosis at L2-3. 4. Mild central and bilateral subarticular recess stenosis at L4-5. 5. Mild central and bilateral foraminal stenosis at L5-S1.
--- NOTE | 2022-04-30 10:10 | W.ED.GENADLT ---
HPI - General Adult General: Chief complaint: Back Pain/Injury Stated complaint: back pain Time Seen by Provider: 04/30/22 10:04 History of Present Illness: Patient is a 62-year-old female with history of lung cancer, prior CVA with left-sided hemiparesis who presents emergency room for evaluation of back pain headache and shortness of breath. Per patient, she woke up this morning at 630 today with concerns of lower back pain and headache. Patient tells me she normally has headache but this headache feels different from her usual headache. Patient has not had any recent injuries or fall. Patient denies anticoagulation. Patient is currently not getting chemotherapy or radiation treatment for her lung cancer. Of note, this morning, patient was also noted to be short of breath. For the last 3 days, patient has coughed up streaks of blood. Patient denies any massive hemoptysis, hematemesis, nausea/vomiting, diarrhea melena/hematochezia. Onset: earlier today Duration:ongoing Location:home Severity:moderate Associated symptoms: Reports dyspnea and headache(s); Deny chest pain, nausea, rash, palpitations or vomiting Review of Systems Const: Denies: fever(s) or chills Eyes: Denies: change in vision ENMT: Denies: mouth pain Card: Denies: chest pain or palpitations Resp: Reports: dyspnea; Denies: non-productive cough GI: Denies: abdominal pain, nausea, vomiting or diarrhea : Denies: dysuria Musc: Reports: back pain (+L lower back pain); Denies: extremity pain Skin/Breast: Denies: rash or new lesions Neuro: Reports: headache(s); Denies: weakness in extremities Psych: Reports: other (Normal mood) Sudhakar/Lymph: Denies: easy bruising PFS ED PFSH: Medical History Cancer of right lung Family History Other CAD (coronary artery disease) Cancer Dementia Diabetes Hyperlipidemia Hypertension Lung disease Denies family history of Clotting disorder Psychiatric illness Chronic kidney disease (CKD) Suicide Anesthesia complication Bleeding disorder Stroke Social History Smoking and tobacco status: current every day smoker Quit status (tobacco): has quit using tobacco Year quit tobacco: January 2022 Former quit date comment: 3ppd x 45 Alcohol intake: never Physical Exam Const: COMMON NORMALS: alert HENMT: COMMON NORMALS: atraumatic HEAD & SCALP: atraumatic MOUTH: moist mucous membranes not abnormal Eye: COMMON NORMALS: EOMs intact bilaterally and conjunctivae normal CONJUNCTIVA: Yes conjunctivae normal Neck/C-Spine: COMMON NORMALS: full ROM and supple OTHER: No meningsmus signs Resp: COMMON NORMALS: normal respiratory effort and clear to auscultation bilaterally AUSCULTATION: clear to auscultation bilaterally Cardio: COMMON NORMALS: regular rate RATE: regular rate GI: COMMON NORMALS: Soft to palpation and non-tender PALPATION: Yes Soft to palpation OTHER: No focal TTP. NO guarding rebound, guarding, rigidity. No CVA tenderness to percussion. Neg Gallegos/Neg McBurney's point tenderness, no suprabupic tenderness to palpation. Back/Pelvis: OTHER: +Paraspinal L lumbar tenderness to palpation Extremity: COMMON NORMALS: full ROM Neuro: SENSORIUM/ORIENTATION: Yes alert MOTOR EXAM: No Abnormal motor strength present and Other motor observations present (no focal motor deficits) Psych: COMMON NORMALS: speech normal SPEECH: Yes normal speech MOOD & AFFECT: Yes euthymic mood Course Vital Signs: Vital signs: Vital Signs Pulse Rate 96 04/30/22 14:01 Respiratory Rate 16 04/30/22 14:01 Blood Pressure 170/101 04/30/22 14:01 Pulse Oximetry 96 04/30/22 14:01 Oxygen Delivery Me thod 04/30/22 14:01 Oxygen Flow Rate 2 04/30/22 14:01 [facility] - General Adult Medical Decision Making Patient is a 62-year-old female with history of lung cancer, prior CVA with left-sided hemiparesis who presents emergency room for evaluation of back pain headache and shortness of breath. Patient has been having symptoms since 630 this morning. No meningismus on exam. Patient has not left lumbar area tenderness palpation. No CVA tenderness. Patient has no suprapubic tenderness. Rest of exam is unremarkable. Labs show white count 9.0. Lab is largely unremarkable. UA showed 4+ bacteria. Patient received ceftriaxone in the ER. CT head and CT lumbar area is negative for any acute finding. Troponin x2 with delta less than 5. EKG is nonischemic. Do not suspect ACS as cause of shortness of breath. X-ray chest showed similar R upper lobe lesion to prior. Rx: Tylenol, lidocaine patch, and menthol PRN pain, cefdinir for UTI Disposition: Discharge. Patient counseled regarding diagnostic impression, treatment plan. Patient given ED strict return precautions to return for continuation, worsening, or development of new symptoms. Instructed to f/u w/ PCP regarding symptoms today. Patient verbalized understanding. Lab Data : 04/30/22 11:00 04/30/22 11:00 Radiology Impressions Lumbar Spine CT 04/30/22 10:10 IMPRESSION: 1. No evidence for metastatic disease to the spine. 2. Multilevel asymmetric disc bulging with protrusions, facet and ligamentum flavum hypertrophy causing stenosis. Moderate central and bilateral subarticular recess stenosis at L3-4, greater on the RIGHT. 3. Moderate central with bilateral subarticular recess and foraminal stenosis at L2-3. 4. Mild central and bilateral subarticular recess stenosis at L4-5. 5. Mild central and bilateral foraminal stenosis at L5-S1. Chest X-Ray 04/30/22 10:20 IMPRESSION: 1. Large right upper lobe soft tissue mass like density unchanged in appearance. There is extensive fibrous scarring in the right lung with rightward mediastinal retraction. This is stable in appearance. 2. No acute infiltrate or pneumothorax. 3. Postoperative the changes. Head CT 04/30/22 10:20 IMPRESSION: 1. No acute intracranial hemorrhage or edema. 2. Large RIGHT MCA territory remote infarct with encephalomalacia. Laboratory Results WBC 9.0 10^3/uL (4.0-10.0) 04/30/22 11:00 RBC 4.60 10^6/uL (4.1-5.3) 04/30/22 11:00 Hgb 11.6 g/dL (11.5-15.3) 04/30/22 11:00 Hct 40.4 % (37.0-47.0) 04/30/22 11:00 MCV 87.8 fl (81-99) 04/30/22 11:00 MCH 25.2 pg (28.0-34.0) L 04/30/22 11:00 MCHC 28.7 g/dL (30.0-36.0) L 04/30/22 11:00 RDW 20.0 % (12.1-15.1) H 04/30/22 11:00 Plt Count 378 10^3/cmm (130-400) 04/30/22 11:00 MPV 10.1 fL (7.4-10.4) 04/30/22 11:00 Neut % (Auto) 80.3 % 04/30/22 11:00 Lymph % (Auto) 14.6 % 04/30/22 11:00 Peach % (Auto) 2.9 % 04/30/22 11:00 Eos % (Auto) 1.3 % 04/30/22 11:00 Baso % (Auto) 0.6 % 04/30/22 11:00 Neut # (Auto) 7.21 10^3/uL (1.8-7.7) 04/30/22 11:00 Lymph # (Auto) 1.3 10^3/uL (0.8-4.8) 04/30/22 11:00 Peach # (Auto) 0.3 10^3/uL (0.2-0.9) 04/30/22 11:00 Eos # (Auto) 0.1 10^3/uL (0.0-0.8) 04/30/22 11:00 Baso # (Auto) 0.1 10^3/uL (0.0-0.1) 04/30/22 11:00 Nucleated RBC % (auto) 0 % 04/30/22 11:00 Nucleated RBCs # 0.0 /100WBC 04/30/22 11:00 Sodium 139 mmol/L (136-145) 04/30/22 11:00 Potassium 4.2 mmol/L (3.5-5.1) 04/30/22 11:00 Chloride 102 mmol/L (98-107) 04/30/22 11:00 Carbon Dioxide 24 mmol/L (22-29) 04/30/22 11:00 Anion Gap 17.2 (5-19) 04/30/22 11:00 BUN 10 mg/dL (8-23) 04/30/22 11:00 Creatinine 0.6 mg/dL (0.5-0.9) 04/30/22 11:00 GFR Calculation 101.6 mL/min (90-130) 04/30/22 11:00 Glucose 124 mg/dL (65-115) H 04/30/22 11:00 Calculated Osmolality 288 mOsm/kg (285-295) 04/30/22 11:00 Calcium 9.8 mg/dL (8.5-10.5) 04/30/22 11:00 Troponin T Baseline 11 ng/L (0-10) H 04/30/22 11:00 Troponin T 120 Minute 9.86 ng/L (0-10) 04/30/22 12:50 Delta Troponin T 0.81 ABS# (0-10) 04/30/22 12:50 Urine Color Yellow (Yellow) 04/30/22 12:13 Urine Appearance Clear (CLEAR) 04/30/22 12:13 Urine pH 5.5 (5-7) 04/30/22 12:13 Ur Specific [place] >= 1.030 (1.005-1.030) 04/30/22 12:13 Urine Protein 1+ (Negative) A 04/30/22 12:13 Urine Glucose (UA) Negative (Normal) 04/30/22 12:13 Urine Ketones Negative (Negative) 04/30/22 12:13 Urine Blood Negative (Negative) 04/30/22 12:13 Urine Nitrate Positive 04/30/22 12:13 Urine Bilirubin Negative (Negative) 04/30/22 12:13 Urine Urobilinogen 0.2 mg/dL (Negative) 04/30/22 12:13 Ur Leukocyte Esterase Negative (Negative) 04/30/22 12:13 Urine RBC 0-4 /hpf (0-2) H 04/30/22 12:13 Urine WBC 0-4 /hpf (0-5) H 04/30/22 12:13 Ur Squamous Epith Cells 0-4 /hpf (0-5) H 04/30/22 12:13 Amorphous Sediment Not Reportable 04/30/22 12:13 Urine Bacteria 4+ /hpf (NONE) H 04/30/22 12:13 Imaging Data Other Imaging: Radiologist's impression: [address] [address] [address] Scan Report Signed Patient: Cee Dai Unit #: [id number] : 1960 Age/Sex: 62 / F ADM Date: 04/30/22 Loc: ER Room/Bed: Attending Dr: Ordering Provider/Ordering MD: Mariella Farr MD Date of Service: 04/30/22 Procedure(s): CT head wo con* 53530 Accession Number(s): [id number] Report Number: [id number] WS: [email or web address] CT HEAD NONCONTRAST HISTORY: headache, hx of lung cancer TECHNIQUE: Contiguous axial imaging performed through the brain in 3.0 mm imaging. Bone and soft tissue windows. Sagittal and coronal reformats reviewed.? All CT scans at [facility] use at least one of these dose optimization techniques: automated exposure control; mA and/or kV adjustment per patient size (includes targeted exams where dose is matched to clinical indication); or iterative reconstruction. DLP: 1078.29 mGy.cm COMPARISON: 03/18/2022 Large prior RIGHT MCA territory infarct with encephalomalacia. Exvacuodilatation of the adjacent RIGHT lateral ventricle. Very mild atrophy and in the LEFT cerebrum. Ventricles:? No change in size of the ventricles. No intraventricular hemorrhage. No inferior displacement of cerebellar tonsils. Paranasal sinuses: Mild mucoperiosteal thickening in the ethmoid air cells. No air-fluid levels. Mastoid air cells: Well pneumatized. Calvarium and scalp: No fracture. No scalp mass. CT/CT head wo con* [id number] IMPRESSION: ? 1.? No acute intracranial hemorrhage or edema. 2.? Large RIGHT MCA territory remote infarct with encephalomalacia. ? Dictated By: Kaycee Brown DO Signed By: Kaycee Brown DO Signed Date/Time: 04/30/22 1144 DD/ [address] [address] XRay Report Signed Patient: Cee Dai Unit #: [id number] : 1960 Age/Sex: 62 / F ADM Date: 04/30/22 Loc: ER Room/Bed: Attending Dr: Ordering Provider/Ordering MD: Mariella Farr MD Date of Service: 04/30/22 Procedure(s): XR chest 1V portable [id number] Accession Number(s): [id number] Report Number: [id number] WS: [email or web address] Exam: XR chest 1V portable [id number] Date/Time of Exam: 04/30/2022 10:35 AM Reason For Exam: chest pain Comparison 03/24/2022. Again noted is a large right upper lobe soft tissue mass unchanged in appearance since previous study. There is fibrous scarring in the right upper lobe and tenting of the right diaphragm. The left lung is clear. Heart size is top limits normal. Signs of median sternotomy. Regional bony structures are intact. No pneumothorax. No pleural effusion. Mild right-sided pleural thickening near the costophrenic angle. Rightward retraction of mediastinal structures. XR/XR chest 1V portable [id number] IMPRESSION: 1. Large right upper lobe soft tissue mass like density unchanged in appearance. There is extensive fibrous scarring in the right lung with rightward mediastinal retraction. This is stable in appearance. 2. No acute infiltrate or pneumothorax. 3. Postoperative the changes. ? Dictated By: Qasim Rocha DO Signed By: Qasim Rocha DO Signed Date/Time: 04/30/22 1039 DD/ [address] [place] [address] CT Scan Report Signed Patient: Cee Dai Unit #: [id number] : 1960 Age/Sex: 62 / F ADM Date: 04/30/22 Loc: ER Room/Bed: Attending Dr: Ordering Provider/Ordering MD: Mariella Farr MD Date of Service: 04/30/22 Procedure(s): CT lumbar spine wo con* [id number] Accession Number(s): [id number] Report Number: [id number] WS: [email or web address] CT LUMBAR SPINE, noncontrast. HISTORY: back pain, history of lung cancer. TECHNIQUE: Contiguous 2.5 mm axial imaging are performed. Sagittal and coronal reformats are submitted and reviewed.? All CT scans at [facility] use at least one of these dose optimization techniques: automated exposure control; mA and/or kV adjustment per patient size (includes targeted exams where dose is matched to clinical indication); or iterative reconstruction. IV contrast: None DLP: 743.90 mGy.cm COMPARISON: PET/CT 04/07/2022, prior CT 08/15/2021 Mild RIGHT rotoscoliosis of the lumbar spine. 2 mm retrolisthesis of L2. Severe sclerosis with subchondral cystic changes involving the RIGHT lateral L4 and L5 vertebral bodies. Hypertrophic osteophytes at all levels. No osteoblastic or osteolytic lesions are identified. L1-2: No stenosis. L2-3: Diffuse asymmetric disc bulging with ligamentum flavum hypertrophy and facet arthritis. Posterior L3 vertebral body osteophyte encroaches into the thecal sac. Moderate central with bilateral subarticular recess and foraminal stenosis. L3-4: Diffuse asymmetric disc bulge. RIGHT foraminal disc protrusion. Disc protrusion contacts the RIGHT lateral thecal sac. Moderate central with bilateral subarticular recess stenosis but greater on the RIGHT. L4-5: Diffuse annular disc bulging with encroachment upon the ventral thecal sac. Mild central and bilateral subarticular recess stenosis. L5-S1: Diffuse disc bulging with mild central and bilateral foraminal stenosis. Very small RIGHT pleural thickening. Increased soft tissue thickening may be a very small effusion or post treatment related pleural thickening. Visualized adrenal glands are negative. Heavy calcification within the abdominal aorta. No osteoblastic or osteolytic bone disease. CT/CT lumbar spine wo con* [id number] IMPRESSION: ? 1.? No evidence for metastatic disease to the spine. 2.? Multilevel asymmetric disc bulging with protrusions, facet and ligamentum flavum hypertrophy causing stenosis. Moderate central and bilateral subarticular recess stenosis at L3-4, greater on the RIGHT. 3.? Moderate central with bilateral subarticular recess and foraminal stenosis at L2-3. 4.? Mild central and bilateral subarticular recess stenosis at L4-5. 5.? Mild central and bilateral foraminal stenosis at L5-S1. ? Dictated By: Kaycee Brown DO Signed By: Kaycee Brown DO Signed Date/Time: 04/30/22 1154 DD/ 1145 Discharge Plan Discharge Patient Disposition: Home Clinical Impression: Back pain, UTI (urinary tract infection) Condition: Stable Prescriptions: New acetaminophen 500 mg tablet 500 mg PO Q6H PRN (Reason: pain) 5 Days Qty: 20 0RF lidocaine 5 % adhesive patch,medicated 1 patch topical DAILY PRN (Reason: pain) 30 Days Qty: 30 0RF Rx Instructions: leave on most painful area for up to 12 hrs Biofreeze (menthol) 5 % gel 1 ea topical BID PRN (Reason: pain) 10 Days Qty: 1 0RF cefdinir 300 mg capsule 300 mg PO BID 10 Days Qty: 20 0RF No Action clopidogrel [Plavix] 75 mg tablet 75 mg PO DAILY aspirin 81 mg tablet,chewable 81 mg PO DAILY melatonin 10 mg capsule 20 mg PO DAILY Spiriva Respimat 2.5 mcg/actuation mist 2 puff inhalation DAILY Qty: 4 3RF multivitamin Tablet 1 tab PO QAM losartan 50 mg tablet 50 mg PO QAM furosemide 40 mg tablet 40 mg PO QAM atorvastatin 40 mg tablet 40 mg PO BEDTIME gabapentin 600 mg tablet See Rx Instructions .ROUTE .COMPLEX Rx Instructions: 600mg po daily @12:00 and 1200mg po at bedtime trazodone 50 mg tablet 50 mg PO BEDTIME amlodipine 5 mg tablet 5 mg PO DAILY baclofen 20 mg tablet 20 mg PO QID potassium chloride 20 mEq tablet,ER particles/crystals 20 meq PO DAILY@12 famotidine 20 mg tablet 20 mg PO BEDTIME magnesium oxide 400 mg (241.3 mg magnesium) tablet 400 mg PO DAILY@17 metformin 1,000 mg tablet 1,000 mg PO BID nitroglycerin 400 mcg/spray [place],Non-Aerosol 1 spray TRANSLINGUAL Q5M PRN (Reason: Chest Pain) Rx Instructions: do not exceed 3 doses per episode hydroxyzine HCl 25 mg tablet 25 mg PO BEDTIME metoprolol succinate 25 mg tablet extended release 24 hr 12.5 mg PO QAM albuterol sulfate 90 mcg/actuation Hfa Aerosol Inhaler 2 puff INHALATION QID PRN (Reason: Shortness Of Breath) dicyclomine 10 mg capsule 10 mg PO TID topiramate 50 mg tablet 50 mg PO BEDTIME pregabalin 150 mg capsule 150 mg PO TID cranberry 450 mg Tablet 450 mg PO DAILY@12 Rx Instructions: administer with a meal calcium carbonate-vitamin D3 600 mg-5 mcg (200 unit) tablet 1 tab PO DAILY@12 Discharge Orders: Discharge ED (Routine); Ordered 04/30/22 Ordered By: Mariella Farr Referrals: Nelly Chowdary FNP [Primary Care Provider] - Discharge Diet: Advance as tolerated Discharge Activity: Increase activity as tolerated Patient Instructions: Dysuria (ED), Back Pain (ED) Activity Restrictions/Additional Instructions: Please come back to the emergency room to have worsening back pain, if have any problem with urination and bowel movementm if you have any weakness in the legs, numbness in the legs, or if you have any new or concerning complaints. Please take your antibiotics as instructed. Watch out for signs of skin changes/redness, mouth redeness or swelling, nausea/vomiting, diarrhea, blood in the urine or any new or concering complaints. Coding Level of Care Code ED Bow Maker Production for Tomi Fwd Exam Comprehensive
--- NOTE | 2022-04-30 10:20 | XR_ITS ---
WS: [email or web address] Exam: XR chest 1V portable [id number] Date/Time of Exam: 04/30/2022 10:35 AM Reason For Exam: chest pain Comparison 03/24/2022. Again noted is a large right upper lobe soft tissue mass unchanged in appearance since previous study . There is fibrous scarring in the right upper lobe and tenting of the right diaphragm. The left lung is clear. Heart size is top limits normal. Signs of median sternotomy. Regional bony structures are intact. No pneumothorax. No pleural effusion. Mild right-sided pleural thickening near the costophren ic angle. Rightward retraction of mediastinal structures. XR/XR chest 1V portable [id number] IMPRESSION: 1. Large right upper lobe soft tissue mass like density unchanged in appearance . There is extensive fibrous scarring in the right lung with rightward mediasti nal retraction. This is stable in appearance. 2. No acute infiltrate or pneumothorax. 3. Postoperative the changes.
--- NOTE | 2022-04-30 10:20 | CT_ITS ---
WS: [email or web address] CT HEAD NONCONTRAST HISTORY: headache, hx of lung cancer TECHNIQUE: Contiguous axial imaging performed through the brain in 3.0 mm imaging. Bone and soft tiss ue windows. Sagittal and coronal reformats reviewed. All CT scans at [facility] use at least one of these dose optimization techniques: automated exposure control; mA and/or kV adjustment per pa tient size (includes targeted exams where dose is matched to clinical indication); or iterative recon struction. DLP: 1078.29 mGy.cm COMPARISON: 03/18/2022 Large prior RIGHT MCA territory infarct with encephalomalacia. Exvacuodilatation of the adjacent RIGH T lateral ventricle. Very mild atrophy and in the LEFT cerebrum. Ventricles: No change in size of the ventricles. No intraventricular hemorrhage. No inferior displacement of cerebellar tonsils. Paranasal sinuses: Mild mucoperiosteal thickening in the ethmoid air cells. No air-fluid levels. Mastoid air cells: Well pneumatized. Calvarium and scalp: No fracture. No scalp mass. CT/CT head wo con* [id number] IMPRESSION: 1. No acute intracranial hemorrhage or edema. 2. Large RIGHT MCA territory remote infarct with encephalomalacia.
--- NOTE | 2022-04-30 10:20 | ECG_ITS ---
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 Measurements Intervals [place] Rate: 82 P: 61 DC: 152 QRS: 33 QRSD: 84 T: 59 QT: 347 QTc: 408 Interpretive Statements SINUS RHYTHM WITH OCCASIONAL SUPRAVENTRICULAR PREMATURE COMPLEXES POSSIBLE LEFT ATRIAL ENLARGEMENT [-0.1mV P-WAVE IN V1/V2] SEPTAL MYOCARDIAL INFARCTION , OF INDETERMINATE AGE [40+ ms Q WAVE IN V1/V2] Compared to ECG 03/18/2022 10:42:29 Myocardial infarct finding now present Electronically Signed On 04-30-2022 20:35:50 CDT by Zuleyka Tripp M.D. [id number]
[2022-04-30] MEDS: lidocaine 5% Patch 1 PATCH TOPICAL (10:40)
[2022-04-30] MEDS: acetaminophen 500 mg Tablet PO (10:41)
[2022-04-30 11:07] LABS: Basophils # 0.1 10^3/uL (0.0-0.1); Basophils % 0.6 %; Eosinophils # 0.1 10^3/uL (0.0-0.8); Eosinophils % 1.3 %; Hematocrit 40.4 % (37.0-47.0); Hemoglobin 11.6 g/dL (11.5-15.3); Lymphocytes # 1.3 10^3/uL (0.8-4.8); Lymphocytes % 14.6 %; Mean Corpuscular HGB Conc 28.7 g/dL (30.0-36.0); Mean Corpuscular Hemoglobin 25.2 pg (28.0-34.0); Mean Corpuscular Volume 87.8 fl (81-99); Mean Platelet Volume 10.1 fL (7.4-10.4); Monocytes # 0.3 10^3/uL (0.2-0.9); Monocytes % 2.9 %; Neutrophils # 7.21 10^3/uL (1.8-7.7); Neutrophils % 80.3 %; Nucleated Red Blood Cells % 0 %; Platelet Count 378 10^3/cmm (130-400)
[2022-04-30 11:31] LABS: Troponin(5th) Baseline 11 ng/L (0-10)
[2022-04-30 11:34] LABS: Blood Urea Nitrogen 10 mg/dL (8-23); Calcium 9.8 mg/dL (8.5-10.5); Carbon Dioxide 24 mmol/L (22-29); Chloride 102 mmol/L (98-107); Glomerular Filtration Rate 101.6 mL/min (90-130); Glucose 124 mg/dL (65-115); Osmolality Calculated 288 mOsm/kg (285-295); Sodium 139 mmol/L (136-145)
[2022-04-30 11:36] LABS: Anion Gap 17.2 (5-19); Potassium 4.2 mmol/L (3.5-5.1)
[2022-04-30 12:23] LABS: Add Urine Microscopic? YES; Bilirubin Urine Negative (Negative); Blood Urine Negative (Negative); Glucose Urine UA Negative (Normal); Ketones Urine Negative (Negative); Leukocyte Esterase Urine Negative (Negative); Nitrate Urine Positive; Protein Urine 1+ (Negative); Specific Gravity, Urine >= 1.030 (1.005-1.030); Urine Appearance Clear (CLEAR); Urine Color Yellow (Yellow); Urobilinogen Urine 0.2 mg/dL (Negative); pH Urine 5.5 (5-7)
[2022-04-30 12:28] LABS: Add Urine Culture? Yes; Bacteria Urine 4+ /hpf; RBC Urine 0-4 /hpf (0-2); Squamous Epithelial Cell Urine 0-4 /hpf (0-5); WBC Urine 0-4 /hpf (0-5)
[2022-04-30 13:00] VITALS: BP 160/97; PULSE 92; RESP 16; O2SAT 98
[2022-04-30 13:19] LABS: Troponin 5 2HR 9.86 ng/L (0-10)
--- NOTE | 2022-04-30 13:38 | ECG_ITS ---
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 Measurements Intervals [place] Rate: 83 P: 57 [place]: 154 QRS: 28 QRSD: 82 T: 64 QT: 355 QTc: 419 Interpretive Statements SINUS RHYTHM WITH OCCASIONAL SUPRAVENTRICULAR PREMATURE COMPLEXES POSSIBLE LEFT ATRIAL ENLARGEMENT [-0.1mV P-WAVE IN V1/V2] SEPTAL MYOCARDIAL INFARCTION , PROBABLY OLD [40+ ms Q WAVE IN V1/V2] Compared to ECG 04/30/2022 11:03:55 No significant changes Electronically Signed On 04-30-2022 20:42:19 CDT by Zuleyka Tripp M.D. [id number]
[2022-04-30 13:41] LABS: Troponin 5 2HR Delta 0.81 ABS# (0-10)
[2022-04-30] MEDS: cefTRIAXone 1,000 MG in sodium chloride 0.9% (plus) 50 ML 100 MG IV (13:50)
[2022-04-30 14:01] VITALS: BP 170/101; PULSE 96; RESP 16; O2SAT 96
== END 2022-04-30 15:00 | disposition home or self-care (01) ==
PROVIDERS: Emergency Provider Emergency Medicine; PCP Nurse Practitioner Family
DX: N39.0 Urinary tract infection, site not specified (principal); M54.9 Dorsalgia, unspecified; Z79.02 Long term (current) use of antithrombotics/antiplatelets; Z79.82 Long term (current) use of aspirin; Z79.84 Long term (current) use of oral hypoglycemic drugs; Z85.118 Personal history of other malignant neoplasm of bronchus and lung; F17.210 Nicotine dependence, cigarettes, uncomplicated
CPT/HCPCS: 70450; 71045; 72131; 80048; 81001; 84484; 85025; 87077; 87086; 87186; 93005; 96365; 99285; J0696

== ENCOUNTER 2022-05-05 06:00 | Day surgery (SDC) | payer MEDICARE, MEDICAID, SELFPAY ==
[2022-05-04 12:12] VITALS: BMI 30.7
[2022-05-05] VITALS (9 sets, daily range): BP systolic 76–92; BP diastolic 48–64; PULSE 64–102; RESP 16–20; TEMP 36.1–36.8; O2SAT 92–100
--- NOTE | 2022-05-05 | SCC_ITS ---
Procedure done: 1. Placement of PowerPort via left subclavian vein 2. Fluoroscopic guidance and interpretation for placement of catheter 3. Ultrasound guidance to access the right internal jugular vein(see attached ultrasound picture per chart) 65.3 seconds of fluoroscopic guidance, for a cumulative dose of 10.62 mGy, was provided to Dr. Navas by the radiology department. C-arm images of the chest were saved for the patient's permanent record. BRENDAND
--- NOTE | 2022-05-05 06:11 | W.PM.OPSUD ---
Surgery/Procedure H&P Update DATE OF PROCEDURE: May 05, 2022 DATE H&P PERFORMED: 04/22/22 H&P UPDATE INFORMATION: I have reviewed H&P completed within last 30 days, I have examined patient prior to procedure and Changes to prior documentation as noted here (Patient is complaining of back pain and she was recently evaluated in the ED. negative work-up. On exam today has fullness on the right side of the neck concerning for lymphadenopathy versus underlying scar of previous carotid surgery.) PRIMARY INDICATION FOR PROCEDURE: The same PLANNED PROCEDURE: Operation Date: 05/05/22 07:00 Proposed Procedures p placement of port a cath placement 22460,C34.91(Not Applicable) - Kenny Navas MD
--- NOTE | 2022-05-05 06:12 | SC_ITS ---
WS: [email or web address] C-ARM RADIOGRAPHS CHEST; 2 IMAGES HISTORY: Power port Placement COMPARISON: None available. LEFT subclavian PowerPort placement. The tip of the catheter overlies the mid SVC. SC/C-arm FL for CVA [id number] IMPRESSION: Intraoperative imaging during LEFT subclavian PowerPort port placement.
[2022-05-05] MEDS: sodium chloride 0.9% 1,000 ML 30 ML IV (07:10)
[2022-05-05] MEDS: clindamycin 600 MG/50 ML PREMIX 100 MG IV (07:11)
[2022-05-05] MEDS: lidocaine 2% INJ 20 mL INJECTION (07:43)
[2022-05-05] MEDS: heparin, porcine 1,000 unit/mL INJ 10 mL 10000 UNIT IRRIGATION (07:44)
[2022-05-05] MEDS: heparin, porcine 1,000 unit/mL INJ 10 mL 4000 UNIT IRRIGATION (08:17)
--- NOTE | 2022-05-05 08:26 | XR_ITS ---
WS: [email or web address] PORTABLE CHEST HISTORY: Status post left subclavian vein PowerPort placement COMPARISON: 03/24/2022 LEFT subclavian power port has been placed. The tip of the power port is overlying the expected locat ion of the mid SVC. There is traction and elevation of the RIGHT hilum probably due to prior treatmen t for neoplasm. Areas of consolidation with interstitial thickening throughout large portion of the RIGHT lung. No pl eural effusion or pneumothorax. Cardiac size: Normal. Mediastinum/Aorta: Normal mediastinum. No osseous abnormality seen. XR/XR chest 1V portable [id number] IMPRESSION: 1. LEFT power port has been placed since the prior study. 2. Tip of the PowerPort terminates in the mid SVC and there is mild lateral an d superior displacement of the tip which is probably related to posttreatment a nd neoplastic changes in the RIGHT thorax.
--- NOTE | 2022-05-05 08:27 | PM.OP ---
Operative Report Date of procedure: May 05, 2022 Pre-op diagnosis: Preop Diagnosis Lung cancer Procedure done: 1. Placement of PowerPort via left subclavian vein 2. Fluoroscopic guidance and interpretation for placement of catheter 3. Ultrasound guidance to access the right internal jugular vein(see attached ultrasound picture per chart) Implants: Left upper chest PowerPort Surgeon: Kenny Navas MD Voucher Examiner: shale processing technician Kimberly Circulating nurse Shani Anesthesia: MAC (MEDICAL DONATION PROFESSIONAL Jani Morin) Estimated blood loss (mL): 10 Procedure: Patient was identified in the holding area and taken to the operative room and placed in supine position IV propofol was given by the anesthesia provider ,both arms were tucked,Time-out was done verifying the patient's name/date of /planned procedure and destination after the procedure, all were in agreement. SCDs confirmed to be functioning, preoperative antibiotics administered per protocol, and beta lindsey protocol was confirmed, appropriate positioning of the patient was done by me. Medications were reviewed to assess for anticoagulant usage.Risks and benefits and prevention of central line associated blood stream infection (CLABSI) were discussed with the patient/CPOA, and a consent was obtained. Monitors were in place and monitored throughout the procedure. All necessary supplies were available prior to start. Hand hygiene was completed prior to starting. Maximum barrier technique was utilized including a sterile gown, sterile gloves with a hat and mask. Site was was prepped with [chlorhexidine] and a full body drape was placed. 5 mL of 2% lidocaine was injected into the skin with a 25 gauge needle. Prep& drape was done under the usual sterile technique, lidocaine 2% was injected at the site of the stick, started by right subclavian vein but I was not able to access it instead there was subclavian artery arterial blood retrieved, so needle was retrieved and pressure was held for appropriate few minutes and I had to deviate my attention towards the right internal jugular vein and there was an interesting the finding of a large intraluminal thrombosis of the right IJ. Under ultrasound guidance. With my personal interpretation. Which I had to abort and directed my attention now towards the left subclavian vein. The left subclavian stick that retrieved venous blood was obtained from the first stick, a guidewire was then threaded and under the guidance of fluoroscopy position was confirmed to be in the IVC and my interpretation, there was not PVC changes, at that point the guidewire was secured to the drapes with a hemostat and the needle was taken out, attention was then deviated towards creation of a pocket for the port were lidocaine 2% was injected using an 15 blade knife skin incision was created dissection using the Bovie to create a pocket for the Port-A-Cath to be accommodated, hemostasis was secured, after the port being appropriately flushed it was inserted into the pocket and a tunneler was used to accommodate the catheter of the port cath to be delivered through the incision first created at the site of the stick, at that point under fluoroscopy an estimated length was measured for the catheter and was cut at the designed level, followed by that a dilator with the sheath introduced onto the guidewire the dilator and the wire were retrieved and the catheter of the port was introduced via the sheath where it was peeled off and the catheter maintained to be in the SVC that was confirmed with fluoroscopy, and the fluoroscopy interpretation was done by me throughout the entire procedure. The port was then kept in its pocke,t 3-0 Vicryl deep subdermal interrupted sutures, skin was then closed by 4-0 Monocryl as subcuticular closure. The port was appropriately flushed with heparin and venous blood was withdrawn with difficulty after making some adjustments to the attachment of the port to the catheter. As I had to dismantled the connection and apply a guidewire again under fluoroscopy through the catheter, and then I was able to retrieve the wire and flush the catheter again with heparin and reconnecting into the port. Then it was flushed with ease. I was able to retrieve appropriately venous blood. The stick site was closed by 4-0 Monocryl and Dermabond was used followed by dressing. Patient tolerated the procedure well was taken to the recovery area Count was correct at the end of the procedure I was present for the whole entire procedure. Position of the catheter was checked with a postoperative chest x-ray and it was in good position without evidence of pneumothorax Discussed with Dr. Sepulveda over the phone postoperatively and recommended to place the patient on Eliquis starting tomorrow 5 mg twice p.o. daily for 1 week with the plan to see him in the office in 1 week. And both agreed to resume Plavix and aspirin in 3 to 4 days.
--- NOTE | 2022-05-05 09:49 | P.ANESASSM_ITS ---
Pre-Anesthetic Assessment Height/Weight: Height 1.65 m Weight 83.915 kg Temp Pulse Resp BP Pulse Ox O2 Del Method O2 Flow Rate 98.3 F 74 16 92/51 92 10 05/05/22 09:10 05/05/22 09:10 05/05/22 09:10 05/05/22 09:10 05/05/22 09:10 05/05/22 09:10 05/05/22 08:45 Preop Diagnosis: Lung cancer Operation Date: 05/05/22 07:00 Proposed Procedures p placement of port a cath placement 82798,C34.91(Not Applicable) - Kenny Navas MD Familial anesthetic complications: none Was Beta Daphne taken within 24 hours: N/A Was Clonidine taken within 24 hours: N/A Last intake: Intake Last Liquid Date 05/04/22 Last Liquid Time 21:00 Last Solid Date 05/04/22 Last Solid Time 21:00 Social Tobacco and No alcohol Exam alert, oriented x 3 and regular rate & rhythm Airway Submandibular: within normal limits Cervical ROM: within normal limits Mallampati: Class II Pulmonary Chronic Obstructive Pulmonary Disease Metabolic Diabetes Mellitus and Hyperlipidemia [facility] [place] Lower Back Pain and Osteoarthritis/DJD Neuropsych Cerebrovascular Accident and Deficit (left) Anesthetic Plan ASA status: 3 Anesthesia: MAC Medications/Allergies Home Medications Medication Instructions Recorded Confirmed Last Taken Type albuterol sulfate 90 mcg/actuation 2 puff inhalation QID PRN 03/18/22 05/05/22 04/28/22 History aerosol inhaler Shortness Of Breath amlodipine 5 mg tablet 5 mg PO DAILY 03/18/22 05/05/22 1 Week Ago History ~03/11/22 see pharmacy comment atorvastatin 40 mg tablet 40 mg PO BEDTIME 03/18/22 05/05/22 05/04/22 History baclofen 20 mg tablet 20 mg PO QID 03/18/22 05/05/22 05/05/22 History cranberry fruit 450 mg tablet 450 mg PO DAILY@12 03/18/22 05/05/22 05/04/22 History (cranberry) dicyclomine 10 mg capsule 10 mg PO TID 03/18/22 05/05/22 05/05/22 History famotidine 20 mg tablet 20 mg PO BEDTIME 03/18/22 05/05/22 05/05/22 History furosemide 40 mg tablet 40 mg PO QAM 03/18/22 05/05/22 05/04/22 History gabapentin 600 mg tablet See Rx Instructions .Route .COMPLEX 03/18/22 05/05/22 05/04/22 History hydroxyzine HCl 25 mg tablet 25 mg PO BEDTIME 03/18/22 05/05/22 05/04/22 History losartan 50 mg tablet 50 mg PO QAM 03/18/22 05/05/22 05/05/22 History magnesium oxide 400 mg (241.3 mg 400 mg PO DAILY@03/18/22 05/05/22 05/04/22 History magnesium) tablet metformin 1,000 mg tablet 1,000 mg PO BID 03/18/22 05/05/22 05/05/22 History metoprolol succinate 25 mg 12.5 mg PO QAM 03/18/22 05/05/22 05/05/22 History tablet,extended release 24 hr multivitamin 1 tab PO QAM 03/18/22 05/05/22 05/05/22 History nitroglycerin 400 mcg/spray 1 spray translingual Q5M PRN Chest 03/18/22 05/04/22 Unknown History translingual Pain potassium chloride 20 mEq 20 meq PO DAILY@12 03/18/22 05/05/22 05/04/22 History tablet,extended release(part/cryst) pregabalin 150 mg capsule 150 mg PO TID 03/18/22 05/05/22 04/29/22 History topiramate 50 mg tablet (Topamax) 50 mg PO BEDTIME 03/18/22 05/05/22 05/04/22 History trazodone 50 mg tablet 50 mg PO BEDTIME 03/18/22 05/05/22 05/04/22 History calcium carbonate 600 mg-vitamin 1 tab PO DAILY@12 03/19/22 05/05/22 05/04/22 History D3 5 mcg (200 unit) tablet melatonin 10 mg capsule 20 mg PO DAILY 03/19/22 05/05/22 04/29/22 History tiotropium bromide 2.5 2 puff inhalation DAILY #4 grams 03/19/22 05/05/22 04/29/22 Rx mcg/actuation mist for inhalation (Spiriva Respimat) aspirin 81 mg chewable tablet 81 mg PO DAILY 04/22/22 05/05/22 05/01/22 History clopidogrel 75 mg tablet (Plavix) 75 mg PO DAILY 04/22/22 05/05/22 04/30/22 History cefdinir 300 mg capsule 300 mg PO BID uti 10 days #20 caps 04/30/22 05/05/22 05/04/22 Rx lidocaine 5 % topical patch 1 patch topical DAILY PRN pain 30 04/30/22 05/05/22 04/30/22 Rx days #30 ea menthol 5 % topical gel (Biofreeze 1 ea topical BID PRN pain 10 days 04/30/22 05/05/22 Unknown Rx (menthol)) #1 tube apixaban 5 mg tablet (Eliquis) 5 mg PO BID 7 days #14 tabs 05/05/22 Unknown Rx hydrocodone 5 mg-acetaminophen 325 1 tab PO Q6H PRN pain #14 tabs 05/05/22 Unknown Rx mg tablet Allergies Allergy/AdvReac Type Severity Reaction Status Date / Time codeine Allergy ADR-Vomitin Verified 05/04/22 12:08 g Iodinated Contrast Media Allergy ALGY-Redness Verified 05/04/22 12:08 of Skin Penicillins Allergy ALGY-Hives Verified 05/04/22 12:08 Current Medications Generic Name Dose Route Start Last Admin Trade Name Freq PRN Reason Stop Dose Admin Sodium Chloride 1,000 mls @ 30 mls/hr 05/05/22 06:15 05/05/22 07:10 Sodium Chloride 0.9% IV 05/06/22 06:14 30 mls/hr .Q24H WES Administration PFSH Anesthesia Medical History Cancer of right lung Family History Other CAD (coronary artery disease) Cancer Dementia Diabetes Hyperlipidemia Hypertension Lung disease Denies family history of Clotting disorder Psychiatric illness Chronic kidney disease (CKD) Suicide Anesthesia complication Bleeding disorder Stroke Social History Smoking and tobacco status: current every day smoker Quit status (tobacco): has quit using tobacco Year quit tobacco: January 2022 Former quit date comment: 3ppd x 45 Alcohol intake: never Data Anesthesia Cardiac Studies: No Data to Display
--- NOTE | 2022-05-05 15:21 | ANE.PACU2 ---
Inpatient post-anesthesia follow up: Airway intact: Yes Vital signs: Temperature 98.3 F Pulse Rate 68 Respiratory Rate 18 Blood Pressure 90/51 Pulse Oximetry 92 Oxygen Delivery Me thod Room Air Oxygen Flow Rate 10 Fraction of Inspir ed Oxygen Hydration adequate: Yes Nausea and vomiting: No Pain level: 2 Mental status: Baseline
== END 2022-05-05 09:52 | disposition home or self-care (01) ==
PROVIDERS: PCP Nurse Practitioner Family; Visit Provider Surgery
PROC: (CPT 36561; principal; 2022-05-05 07:00)
DX: C34.90 Malignant neoplasm of unspecified part of unspecified bronchus or lung (principal); J44.9 Chronic obstructive pulmonary disease, unspecified; E11.9 Type 2 diabetes mellitus without complications; E78.5 Hyperlipidemia, unspecified; Z86.73 Personal history of transient ischemic attack (TIA), and cerebral infarction without residual deficits; F17.210 Nicotine dependence, cigarettes, uncomplicated
CPT/HCPCS: 36561; 71045; 77001; C1788; J1644; J2370; J2704; J3010; J3490; J7030

== ENCOUNTER 2022-05-08 01:31 | Emergency (ER) | payer MEDICARE, MEDICAID, SELFPAY ==
[2022-05-08] VITALS (13 sets, daily range): BP systolic 94–163; BP diastolic 76–104; PULSE 90–120; RESP 16–32; O2SAT 85–100; BMI 31.7
--- NOTE | 2022-05-08 01:35 | XRR_ITS ---
PROCEDURE INFORMATION: Exam: XR Chest Exam date and time: 05/08/2022 1:38 AM Age: 62 years old Clinical indication: Shortness of breath; Prior surgery; Surgery type: Port. Open heart. Patient HX: C/O SOB with hemoptysis. History of lung cancer. TECHNIQUE: Imaging protocol: Radiologic exam of the chest. Views: 1 view. COMPARISON: CR XR chest 1V portable [id number] 05/05/2022 8:35 AM FINDINGS: Tubes, catheters and devices: Left-sided Port-A-Cath terminates in the region of the left brachiocephalic vein. Lungs: Similar large area of consolidation in the right upper lobe consistent with neoplastic disease. Pleural spaces: Probable small right pleural effusion. No pneumothorax. Heart/Mediastinum: Unremarkable. No cardiomegaly. Bones/joints: Status post median sternotomy. XR/XR chest 1V portable [id number] IMPRESSION: 1. No substantial change. Similar large area of consolidation in the right upper lobe consistent with neoplastic disease. 2. Probable small right pleural effusion.
--- NOTE | 2022-05-08 01:35 | ECG_ITS ---
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 Measurements Intervals [place] Rate: 114 P: 57 GA: 162 QRS: 30 QRSD: 86 T: 59 QT: 285 QTc: 394 Interpretive Statements SINUS TACHYCARDIA POSSIBLE RIGHT ATRIAL ENLARGEMENT [0.25mV P-WAVE] POSSIBLE LEFT ATRIAL ENLARGEMENT [-0.1mV P-WAVE IN V1/V2] NONSPECIFIC T-WAVE ABNORMALITY Compared to ECG 04/30/2022 13:38:04 T-wave abnormality now present Sinus rhythm no longer present Myocardial infarct finding no longer present Electronically Signed On 05-08-2022 14:48:06 CDT by Benedict Watt M.D. [email or web address].[employer]/store/[id number] f
--- NOTE | 2022-05-08 01:38 | W.ED.SOB ---
HPI - SOB/Dyspnea General: Chief Complaint: Shortness of Breath/Dyspnea Stated Complaint: SOB Time Seen by Provider: 05/08/22 01:32 Source: patient and EMS Mode of arrival: EMS Limitations: no limitations History of Present Illness: HPI Narrative: 62-year-old female who has a history of congestive heart failure COPD along with lung cancer. Patient states that she did have a port placed recently and just started Eliquis she states that over the last 3 days she has not taken her Lasix because she has been going to doctors appointments and does not like to take it because she has to pee too much. Tonight she is having increasing shortness of breath she typically wears 2 L of oxygen and EMS had to place her on for she does have bilateral rales. States she has been coughing denies any fever denies any chest pain. She has had hemoptysis today at home as well and has had some hemoptysis here. Associated symptoms: Reports hemoptysis; Deny abdominal pain, chest pain, fever(s), nausea or vomiting Review of Systems Const: Denies: fever(s), chills, body aches or change in appetite Eyes: Denies: blurry vision or eye discomfort ENMT: Denies: throat pain or dental pain Card: Denies: chest pain Resp: Reports: dyspnea and hemoptysis GI: Denies: abdominal pain, nausea, vomiting or diarrhea : Denies: dysuria Musc: Denies: neck pain or back pain Skin/Breast: Denies: rash Neuro: Denies: headache(s) Psych: Denies: depression Sudhakar/Lymph: Denies: easy bruising All/Imm: Denies: urticaria PFSH ED PFSH: Medical History Cancer of right lung Family History Other CAD (coronary artery disease) Cancer Dementia Diabetes Hyperlipidemia Hypertension Lung disease Denies family history of Clotting disorder Psychiatric illness Chronic kidney disease (CKD) Suicide Anesthesia complication Bleeding disorder Stroke Social History Smoking and tobacco status: current every day smoker Quit status (tobacco): has quit using tobacco Year quit tobacco: January 2022 Former quit date comment: 3ppd x 45 Alcohol intake: never Physical Exam Const: COMMON NORMALS: patient oriented x3 GENERAL APPEARANCE: ill appearing HENMT: COMMON NORMALS: normocephalic and atraumatic HEAD & SCALP: normocephalic and atraumatic Eye: COMMON NORMALS: Equal, round and reactive pupils present and EOMs intact bilaterally PUPIL: Yes Equal, round and reactive pupils present Neck/C-Spine: COMMON NORMALS: full ROM and supple Chest: COMMONS NORMALS: normal inspection of the chest and normal palpation of entire chest wall Resp: EFFORT & INSPECTION: Yes tachypneic and Yes respiratory distress AUSCULTATION: rales OTHER: hemoptysis Cardio: COMMON NORMALS: regular rate, regular rhythm and No murmurs present (Cardio) RATE: regular rate RHYTHM: regular rhythm GI: COMMON NORMALS: Normal to inspection, nondistended, normoactive bowel sounds present, Soft to palpation, non-tender and no masses PALPATION: Yes Soft to palpation Extremity: COMMON NORMALS: normal to inspection and full ROM Neuro: COMMON NORMALS: patient oriented x3 Psych: COMMON NORMALS: mental status grossly normal, Normal thought process present and cooperative THOUGHT PROCESS: Normal thought process present Skin: COMMON NORMALS: no rashes or lesions noted and no wounds GENERAL SKIN EXAM: no rashes or lesions noted Course Vital Signs: Vital signs: Vital Signs Pulse Rate 112 H 05/08/22 04:03 Respiratory Rate 22 H 05/08/22 04:03 Blood Pressure 144/83 05/08/22 04:03 Pulse Oximetry 98 05/08/22 04:03 Oxygen Delivery Me thod 05/08/22 04:03 Oxygen Flow Rate 15 05/08/22 01:35 Fraction of Inspir ed Oxygen 100 05/08/22 04:03 MDM - SOB/Dyspnea Medical Decision Making Patient presents with increasing shortness of breath history of CHF along with hemoptysis was recently started on Eliquis and has lung cancer. Patient's been requiring BiPAP here with increasing oxygenation she is up to 80% FiO2 here. She is DNR/DNI I did ask her here. Will transfer to [facility] to ICU there for higher level of care as we do not have pulmonology on-call in light patient will likely need a [facility] with her mopped assist. Lab Data : 05/08/22 01:40 05/08/22 01:40 Labs/Radiology: Laboratory Results WBC 14.0 10^3/uL (4.0-10.0) H 05/08/22 01:40 RBC 3.71 10^6/uL (4.1-5.3) L 05/08/22 01:40 Hgb 9.4 g/dL (11.5-15.3) L 05/08/22 01:40 Hct 32.3 % (37.0-47.0) L 05/08/22 01:40 MCV 87.1 fl (81-99) 05/08/22 01:40 MCH 25.3 pg (28.0-34.0) L 05/08/22 01:40 MCHC 29.1 g/dL (30.0-36.0) L 05/08/22 01:40 RDW 19.7 % (12.1-15.1) H 05/08/22 01:40 Plt Count 502 10^3/cmm (130-400) H 05/08/22 01:40 MPV 9.8 fL (7.4-10.4) 05/08/22 01:40 Neut % (Auto) 78.0 % 05/08/22 01:40 Lymph % (Auto) 14.1 % 05/08/22 01:40 [place] % (Auto) 7.1 % 05/08/22 01:40 Eos % (Auto) 0.2 % 05/08/22 01:40 Baso % (Auto) 0.2 % 05/08/22 01:40 Neut # (Auto) 10.93 10^3/uL (1.8-7.7) H 05/08/22 01:40 Lymph # (Auto) 2.0 10^3/uL (0.8-4.8) 05/08/22 01:40 [place] # (Auto) 1.0 10^3/uL (0.2-0.9) H 05/08/22 01:40 Eos # (Auto) 0.0 10^3/uL (0.0-0.8) 05/08/22 01:40 Baso # (Auto) 0.0 10^3/uL (0.0-0.1) 05/08/22 01:40 Nucleated RBC % (auto) 0 % 05/08/22 01:40 Nucleated RBCs # 0.0 /100WBC 05/08/22 01:40 PT 16.90 SECONDS (12.1-14.9) H 05/08/22 01:40 INR 1.34 (0.8-1.2) H 05/08/22 01:40 Specimen Type Arterial 05/08/22 01:45 Sample Site Radial, right 05/08/22 01:45 ABG pH 7.20 (7.35-7.45) L 05/08/22 01:45 ABG pCO2 62.5 mmHg (35-45) H* 05/08/22 01:45 ABG pO2 120.0 mmHg (80.0-100.0) H 05/08/22 01:45 ABG HCO3 24.6 mmol/L (22-26) 05/08/22 01:45 ABG Base Excess -3.8 mmol/L (-2.0-2.0) L 05/08/22 01:45 Junior Test Pos 05/08/22 01:45 Hematocrit 30.0 % (37-47) L 05/08/22 01:45 O2 Delivery Device Nrb 05/08/22 01:45 O2 Liters/Min 15.0 % 05/08/22 01:45 FiO2 100.0 % 05/08/22 01:45 Broker Associate ID Gregorytimmy 05/08/22 01:45 Sodium 137 mmol/L (136-145) 05/08/22 01:40 Potassium 5.7 mmol/L (3.5-5.1) H 05/08/22 01:40 Chloride 98 mmol/L (98-107) 05/08/22 01:40 Carbon Dioxide 25 mmol/L (22-29) 05/08/22 01:40 Anion Gap 19.7 (5-19) H 05/08/22 01:40 BUN 25 mg/dL (8-23) H 05/08/22 01:40 Creatinine 0.7 mg/dL (0.5-0.9) 05/08/22 01:40 GFR Calculation 85.1 mL/min (90-130) L 05/08/22 01:40 Glucose 195 mg/dL (65-115) H 05/08/22 01:40 Calculated Osmolality 294 mOsm/kg (285-295) 05/08/22 01:40 Calcium 9.8 mg/dL (8.5-10.5) 05/08/22 01:40 Total Bilirubin 0.4 mg/dL (0.15-1.2) 05/08/22 01:40 AST 10 U/L (0-32) 05/08/22 01:40 ALT 10 U/L (0-33) 05/08/22 01:40 Alkaline Phosphatase 114 U/L (35-105) H 05/08/22 01:40 Troponin T Baseline 16 ng/L (0-10) H 05/08/22 01:40 Troponin T 120 Minute 9.66 ng/L (0-10) 05/08/22 03:40 Delta Troponin T -6.34 ABS# (0-10) L 05/08/22 03:40 NT-Pro-B Natriuret Pep 889 pg/mL (0-125) H 05/08/22 01:40 Total Protein 7.3 g/dL (6.6-8.7) 05/08/22 01:40 Albumin 3.5 g/dL (3.5-5.2) 05/08/22 01:40 Globulin 3.8 g/dL (1.3-4.6) 05/08/22 01:40 SARS-CoV-2 Ag (Rapid) negative (Negative) 05/08/22 02:42 EKG Data EKG 1: I personally reviewed and interpreted this EKG as follows: EKG Interpretation Date: 05/08/22 EKG interpretation time: 01:39 Interpretation: sinus tach hr [address] or t wave abnormalities qrs 86 qtc 353 Critical Care Time Critical Care Time: Critical Care Time: Yes Total Critical Care Time: 40 Attestation: The high probability of a clinically significant, sudden or life threatening deterioration of the patient's pulm system(s) required my full and direct attention, intervention and personal management. The critical care time is as shown. This time is in addition to time spent performing any reported procedures but includes the following: [x] Data and vital sign review and interpretation [x] Patient assessment, examination and intervention [x] Documentation [x] Medication orders and management Discharge Plan Discharge Patient Disposition: Xfer Short-Term Hosp Clinical Impression: Congestive heart failure, Acute respiratory failure with hypoxemia, Hemoptysis Condition: Stable Referrals: Chowdary,Nelly, PROFESSOR OF MEDICINE [Primary Care Provider] - Coding Level of Care Code ED Concrete Paver for Chg Fwd Exam Comprehensive
[2022-05-08 01:49] LABS: Basophils % 0.2 %; Eosinophils % 0.2 %; Hematocrit 32.3 % (37.0-47.0); Hemoglobin 9.4 g/dL (11.5-15.3); Lymphocytes % 14.1 %; Mean Corpuscular HGB Conc 29.1 g/dL (30.0-36.0); Mean Corpuscular Hemoglobin 25.3 pg (28.0-34.0); Mean Corpuscular Volume 87.1 fl (81-99); Mean Platelet Volume 9.8 fL (7.4-10.4); Monocytes % 7.1 %; Neutrophils # 10.93 10^3/uL (1.8-7.7); Nucleated Red Blood Cells % 0 %; Platelet Count 502 10^3/cmm (130-400); Red Blood Count 3.71 10^6/uL (4.1-5.3); Red Cell Distribution Width 19.7 % (12.1-15.1)
[2022-05-08] MEDS: FUROsemide 10 mg/mL SDV 4mL 40 MG IVP (01:55)
[2022-05-08 01:57] LABS: Base Excess ABG -3.8 mmol/L (-2.0-2.0); Blood Gas Allen Test Pos; Blood Gas Operator Identificat WALCI; Blood Gas Sample Site Radial, right; Blood Gas Sample Type Arterial; HCO3 ABG 24.6 mmol/L (22-26); Oxygen Device NRB
[2022-05-08 01:58] LABS: ABG PCO2 62.5 mmHg (35-45)
[2022-05-08] MEDS: ipratropium-albuterol 3 mL Neb INHALATION (02:07)
[2022-05-08 02:09] LABS: INR 1.34 (0.8-1.2)
[2022-05-08 02:16] LABS: Troponin(5th) Baseline 16 ng/L (0-10)
[2022-05-08 02:26] LABS: Alanine Aminotransferase 10 U/L (0-33); Albumin Level 3.5 g/dL (3.5-5.2); Alkaline Phosphatase 114 U/L (35-105); Anion Gap 19.7 (5-19); Aspartate Amino Transferase 10 U/L (0-32); Blood Urea Nitrogen 25 mg/dL (8-23); Calcium 9.8 mg/dL (8.5-10.5); Carbon Dioxide 25 mmol/L (22-29); Chloride 98 mmol/L (98-107); Globulin 3.8 g/dL (1.3-4.6); Glomerular Filtration Rate 85.1 mL/min (90-130); Glucose 195 mg/dL (65-115); NT Pro B Type Natriuretic Pept 889 pg/mL (0-125); Osmolality Calculated 294 mOsm/kg (285-295); Potassium 5.7 mmol/L (3.5-5.1); Sodium 137 mmol/L (136-145); Total Bilirubin 0.4 mg/dL (0.15-1.2); Total Protein 7.3 g/dL (6.6-8.7)
--- NOTE | 2022-05-08 02:53 | PC.NURSE ---
Pt noted to continue to have SPO2 declining. Low 80's. Respiratory contacted. Requested RN turn up BIPAP to 100% FIO2 and they would come evaluate. Pt mask with leak noted. Mask corrected and pt with immediate relief.
[2022-05-08] MEDS: cefTRIAXone 1,000 MG in sodium chloride 0.9% (plus) 50 ML 100 MG IV (02:59)
[2022-05-08] MEDS: azithromycin 500 MG in sodium chloride 0.9% 250 ML 250 MG IV (03:00)
[2022-05-08 03:09] LABS: SARS Covid-2 Antigen negative (Negative)
--- NOTE | 2022-05-08 03:45 | PC.NURSE ---
Pt wanted to be shifted in bed to left side. This was done, but pt immediately became hypoxic with labored respirations. RT notified. FIO2 turned up to 100%.
--- NOTE | 2022-05-08 03:49 | ECG_ITS ---
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 Measurements Intervals Edna Rate: 111 P: 55 AR: 152 QRS: 26 QRSD: 85 T: 55 QT: 301 QTc: 410 Interpretive Statements SINUS TACHYCARDIA POSSIBLE LEFT ATRIAL ENLARGEMENT [-0.1mV P-WAVE IN V1/V2] LOW QRS VOLTAGE IN PRECORDIAL LEADS [QRS DEFLECTION < 1.0 mV IN CHEST LEADS] NONSPECIFIC T-WAVE ABNORMALITY ABNORMAL RHYTHM ECG Compared to ECG 05/08/2022 01:39:46 Low QRS voltage now present T-wave abnormality still present Electronically Signed On 05-08-2022 14:49:43 CDT by Benedict Watt M.D. [email or web address]
--- NOTE | 2022-05-08 04:01 | PC.NURSE ---
RT at bedside. BIPAP settings adjusted by RT. IPAP 18, EPAP 10, Rate 12, FIO2 100
[2022-05-08 04:04] LABS: Troponin 5 2HR 9.66 ng/L (0-10)
[2022-05-08 04:07] LABS: Troponin 5 2HR Delta -6.34 ABS# (0-10)
--- NOTE | 2022-05-08 04:31 | PC.NURSE ---
Pt turned to right side. Pillow placed under left side.
== END 2022-05-08 05:28 | disposition short-term general hospital (02) ==
PROVIDERS: Emergency Provider Emergency Medicine; PCP Nurse Practitioner Family
DX: J96.01 Acute respiratory failure with hypoxia (principal); R04.2 Hemoptysis; I50.9 Heart failure, unspecified; Z20.822 Contact with and (suspected) exposure to COVID-19; F17.210 Nicotine dependence, cigarettes, uncomplicated; Z85.118 Personal history of other malignant neoplasm of bronchus and lung; J44.9 Chronic obstructive pulmonary disease, unspecified; Z79.01 Long term (current) use of anticoagulants
CPT/HCPCS: 36415; 36600; 51702; 71045; 80053; 82803; 83880; 84484; 85025; 85610; 87040; 87426; 93005; 94640; 94660; 96374; 96375; 99291; J0456; J0696; J1940; J7050

== ENCOUNTER 2022-05-11 08:30 | Oncology outpatient (recurring) (ONCR) | payer MEDICARE, MEDICAID, SELFPAY ==
[2022-05-07] MEDS: iodixanol 320 mg/mL 100mL Btl (RAD THERAPY ONLY) IV (08:59)
[2022-05-07] MEDS: alteplase 1 mg/mL SDV 2 mL 2 MG INTRACATH (09:18)
[2022-05-07] MEDS: diphenhydrAMINE 50 mg/mL SDV 1mL IVP (10:00)
[2022-05-07 10:06] LABS: Basophils # 0.1 10^3/uL (0.0-0.1); Basophils % 0.6 %; Eosinophils # 0.2 10^3/uL (0.0-0.8); Hemoglobin 9.4 g/dL (11.5-15.3); Lymphocytes # 1.1 10^3/uL (0.8-4.8); Lymphocytes % 9.6 %; Mean Corpuscular HGB Conc 28.5 g/dL (30.0-36.0); Mean Corpuscular Hemoglobin 25.4 pg (28.0-34.0); Mean Corpuscular Volume 89.2 fl (81-99); Mean Platelet Volume 10.5 fL (7.4-10.4); Monocytes # 0.9 10^3/uL (0.2-0.9); Monocytes % 7.5 %; Neutrophils # 9.03 10^3/uL (1.8-7.7); Neutrophils % 79.2 %; Nucleated Red Blood Cells % 0 %; Platelet Count 440 10^3/cmm (130-400); Red Cell Distribution Width 19.9 % (12.1-15.1); White Blood Count 11.4 10^3/uL (4.0-10.0)
--- NOTE | 2022-05-07 10:12 | CT_ITS ---
WS: [id number] CTA NECK TECHNIQUE: Contrast enhanced CTA of the neck with coronal and sagittal reformatted images and maximum intensity projection (MIP) images. NASCET criteria utilized. CLINICAL INFORMATION: bilateral neck swelling. S/P port placement COMPARISON: None. DLP: 431.[address] scans at [facility] use at least one of these dose optimization techniques: automated e xposure control; mA and/or kV adjustment per patient size (includes targeted exams where dose is matc hed to clinical indication); or iterative reconstruction. FINDINGS: Interval placement of LEFT Port-A-Cath with tip in the mid SVC. Subcutaneous air along the surgical tract and thoracic inlet consistent with postoperative changes. No pneumothorax. Reflux of c ontrast along the catheter with mild narrowing of the SVC due to mediastinal lymphadenopathy. Contras t is visualized in the RIGHT atrium. Acute appearing thrombus involving the RIGHT jugular vein with expansile intraluminal thrombus.Additional thrombus involving the RIGHT subclavian vein at the brachi ocephalic junction. RIGHT common carotid appears occluded just distal to the origin. This appears unchanged the prior CT. Induration in the lower neck and mediastinal soft tissues. Some this may be due to radiation changes . Mild narrowing of the RIGHT proximal main pulmonary artery due to mediastinal lymphadenopathy and s oft tissue thickening. Soft tissue thickening about the RIGHT hilum. Previously described RIGHT upper lobe consolidative infiltrate has improved. Improved aeration RIGHT upper lobe. Persistent narrowing of the RIGHT distal main stem bronchus. Interstitial thickening in the RIGHT upper lobe due to edema or lymphangitic spread. Severe central canal stenosis C5-C6 due to disc osteophyte complex with flattening of the cervical co rd. CT/CT angio neck [id number] IMPRESSION: 1. Recent postoperative changes LEFT port placement. Postoperative changes inv olving the surgical tract and thoracic inlet with subcutaneous air. No drainabl e abscess or fluid collection. 2. Reflux of contrast along the port catheter suggesting some degree of distal SVC stenosis however port appears to be patent. Contrast is visualized in the RIGHT atrium, aorta and pulmonary arteries. 3. New acute appearing expansile thrombus involving the RIGHT jugular vein. Ad ditional thrombus involving the RIGHT subclavian vein at the brachiocephalic ju nction. 4. Chronic appearing occlusion of the RIGHT common carotid artery just distal to the origin present previously. 5. Mediastinal lymphadenopathy and soft tissue thickening with narrowing of th e RIGHT main pulmonary artery and distal main stem bronchus consistent with kno wn neoplasm. 6. Improved aeration RIGHT upper lobe with persistent subtotal consolidation. Message LEFT for Sher Montanez MD at 05/07/2022 11:34 AM
[2022-05-07 10:20] LABS: Alanine Aminotransferase 8 U/L (0-33); Alkaline Phosphatase 108 U/L (35-105); Blood Urea Nitrogen 21 mg/dL (8-23); Calcium 9.4 mg/dL (8.5-10.5); Carbon Dioxide 24 mmol/L (22-29); Chloride 98 mmol/L (98-107); Globulin 3.7 g/dL (1.3-4.6); Glomerular Filtration Rate 101.6 mL/min (90-130); Glucose 117 mg/dL (65-115); Osmolality Calculated 278 mOsm/kg (285-295); Sodium 132 mmol/L (136-145); Total Bilirubin 0.4 mg/dL (0.15-1.2); Total Protein 6.7 g/dL (6.6-8.7)
[2022-05-07 10:23] LABS: Anion Gap 14.9 (5-19); Aspartate Amino Transferase 11 U/L (0-32); Potassium 4.9 mmol/L (3.5-5.1)
[2022-05-07] MEDS: iodixanol 320 mg/mL 100mL Btl IV (10:50)
== END 2022-06-01 23:59 | disposition home or self-care (01) ==
PROVIDERS: Internal Medicine Hematology & Oncology; PCP Nurse Practitioner Family; Visit Provider Radiology Radiation Oncology
DX: Z53.9 Procedure and treatment not carried out, unspecified reason (principal)
CPT/HCPCS: 36591; 36593; 70498; 80053; 85025; 96375; 99214; J1200; J2920; J2997; Q9967